=== PATIENT | female | born 1955 | race Hispanic/Latino ===

== ENCOUNTER 2021-04-22 11:56 | Inpatient (IN) | payer MEDICARE ==
[2021-04-22] MEDS ORDERED: ALBUTEROL 2.5 MG/3 ML NEBU IH ONE ×2 (13:16→20:30)
--- NOTE | 2021-04-22 13:20 | Event Note ---
ED Screening Note Date of service: 04/22/21 Time: 13:17 ED Screening Note: This initial assessment/diagnostic orders/clinical plan/treatment(s) is/are subject to change based on patients health status, clinical progression and re- assessment by fellow clinical providers in the ED. Further treatment and workup at subsequent clinical providers discretion. Patient/guardian urged not to elope from the ED as their condition may be serious if not clinically assessed and managed. Initial orders include: This is a 66-year-old female she presents to the emergency room with complaint of cough x1 week productive at times feeling short of breath and left rib pain with her cough. She was seen her PCP last week , no improvement she denies any other symptoms upon examination her lungs have scattered wheezing. Her past medical history is of COPD diabetes GERD and hypertension.
--- NOTE | 2021-04-22 14:15 | XRay Report ---
CHEST 2 VIEWS INDICATION / CLINICAL INFORMATION: cough wheezing. COMPARISON: None available. FINDINGS: SUPPORT DEVICES: None. HEART / MEDIASTINUM: Cardiomegaly LUNGS / PLEURA: No significant pulmonary or pleural abnormality. No pneumothorax. ADDITIONAL FINDINGS: No significant additional findings. IMPRESSION: 1. Cardiomegaly without CHF Signer Name: Alexis Swenson MD Signed: 04/22/2021 2:10 PM Workstation Name: [id number]
[2021-04-22 15:50] LABS: Hematocrit 36.6 % (30.3-42.9); Mean Corpuscular HGB Conc 33 % (30-34); Mean Corpuscular Volume 94 fl (79-97); Platelet Count 168 K/mm3 (140-440); Red Blood Count 3.89 M/mm3 (3.65-5.03); Red Cell Distribution Width 19.3 % (13.2-15.2)
[2021-04-22 16:05] LABS: Albumin 4.1 g/dL (3.9-5); Calcium 9.1 mg/dL (8.4-10.2)
[2021-04-22] MEDS ORDERED: IPRATROPIUM 0.02% NEBU 2.5 ML IH ONE (20:30)
--- NOTE | 2021-04-22 20:35 | Emergency Department Report ---
ED General Adult HPI - General Chief complaint: Upper Respiratory Infection Stated complaint: SOB PUI?: No Time Seen by Provider: 04/22/21 20:33 Source: patient, EMS (EMS documentation reviewed and appreciated), RN notes reviewed, old records reviewed Mode of arrival: Wheelchair Limitations: Physical Limitation - History of Present Illness Initial comments: The patient was evaluated in the emergency department for symptoms described in the history of present illness. He/she was evaluated in the context of the global COVID-19 pandemic, which necessitated consideration that the patient might be at risk for infection with the virus that causes COVID-19. Institutional protocols and algorithms that pertain to the evaluation of patients at risk for COVID-19 are in a state of rapid change based on information released by regulatory bodies including the CDC and federal and state organizations. These policies and algorithms were followed during the patient's care in the emergency department. Please note that these policies, procedures and recommendations changed on a rapid basis. Primary CARE doctor: Jarod This is a 66-year-old female. Past medical history includes having completed COVID-19 vaccination series, COPD, hepatitis C, GERD, and hypertension, history of hypokalemia, hypomagnesemia, and urinary tract infection. The patient presents to the ER today via EMS with a complaint of cough, wheezing, shortness of breath, mucus production, left lateral rib cage pain, present for a few days. She has been using albuterol at home, and took steroids on Saturday; today is currently Saturday. She saw her outpatient primary care doctor who "I do not remember what they did." EMS gave the patient 5 mg of albuterol in the field as per their documentation. Patient received additional albuterol and Atrovent in this emergency room. She is still having cough, wheezing, shortness of breath and tachypnea. The patient denies travel, surgery, posterior leg pain and swelling, immobilization, DVT and pulmonary embolism risk factors. She denies loss of taste and smell, and Covid exposure. -: Gradual, days(s) Location: chest (Left lateral thorax) Radiation: non-radiation Quality: aching Consistency: constant Improves with: rest Worsens with: movement (Left lateral thorax pain increases with palpation and range of motion.), other (Physical exertion, coughing worsen symptom) - Related Data Home Medications Medication Instructions Recorded Confirmed Last Taken Tiotropium [Spiriva] 1 inhalation INHALATION DAILY 08/27/14 03/27/16 08/30/14 Previous Rx's Medication Instructions Recorded Last Taken Type traMADoL [Ultram 50 MG tab] 50 mg PO Q6HR PRN #10 tablet 08/24/15 Unknown Rx Acetaminophen [Acetaminophen TAB] 650 mg PO Q4H PRN #30 tablet 04/01/16 Unknown Rx Ipratropium/Albuterol Sulfate 1 ampul IH TIDRT #30 ampul.neb 04/01/16 Unknown Rx [DUONEB *Not for PRN Use*] LORazepam [Ativan] 0.5 mg PO BID PRN #15 tab 04/01/16 Unknown Rx Metoclopramide [Reglan ORAL LIQ] 10 mg PO AC #1 mo 04/01/16 Unknown Rx Allergies Allergy/AdvReac Type Severity Reaction Status Date / Time No Known Allergies Allergy Verified 08/24/15 11:40 ED Review of Systems ROS: Stated complaint: SOB Other details as noted in HPI Constitutional: malaise, weakness. denies: fever Eyes: denies: eye discharge ENT: congestion Respiratory: cough, shortness of breath, SOB with exertion, SOB at rest, wheezing Cardiovascular: other (Left lateral thorax pain). denies: chest pain Gastrointestinal: denies: abdominal pain, nausea Genitourinary: denies: dysuria Musculoskeletal: arthralgia, myalgia Neurological: weakness Psychiatric: anxiety ED Past Medical Hx - Past Medical History Previous Medical History?: Yes Hx Hypertension: Yes Hx Congestive Heart Failure: No Hx Diabetes: Yes Hx GERD: Yes Hx Liver Disease: Yes (Hepatitis C) Hx Renal Disease: No Hx Seizures: No Hx Psychiatric Treatment: Yes (depression) Hx Asthma: Yes Hx COPD: Yes Hx HIV: No - Surgical History Past Surgical History?: Yes Additional Surgical History: BILATERAL CATARACT REMOVAL. LEFT ROTATOR CUFF REPAIR - Social History Smoking Status: Former Smoker Substance Use Type: Prescribed - Medications Home Medications: Home Medications Medication Instructions Recorded Confirmed Last Taken Type Tiotropium [Spiriva] 1 inhalation INHALATION DAILY 08/27/14 03/27/16 08/30/14 History traMADoL [Ultram 50 MG tab] 50 mg PO Q6HR PRN #10 tablet 08/24/15 03/27/16 Unknown Rx Acetaminophen [Acetaminophen TAB] 650 mg PO Q4H PRN #30 tablet 04/01/16 Unknown Rx Ipratropium/Albuterol Sulfate 1 ampul IH TIDRT #30 ampul.neb 04/01/16 Unknown Rx [DUONEB *Not for PRN Use*] LORazepam [Ativan] 0.5 mg PO BID PRN #15 tab 04/01/16 Unknown Rx Metoclopramide [Reglan ORAL LIQ] 10 mg PO AC #1 mo 04/01/16 Unknown Rx ED Physical Exam - General Limitations: Physical Limitation General appearance: alert, anxious, in distress, obese - Head Head exam: Present: atraumatic, normocephalic - Eye Eye exam: Present: normal appearance, EOMI. Absent: nystagmus - ENT ENT exam: Present: normal exam, normal orophraynx, mucous membranes moist, normal external ear exam - Neck Neck exam: Present: normal inspection, full ROM. Absent: tenderness, meningismus - Respiratory Respiratory exam: Present: respiratory distress, wheezes, rhonchi, chest wall tenderness (Left lateral thorax tenderness) - Cardiovascular Cardiovascular Exam: Present: normal rhythm, tachycardia, normal heart sounds. Absent: bradycardia, irregular rhythm, systolic murmur, diastolic murmur, rubs, gallop - GI/Abdominal GI/Abdominal exam: Present: soft. Absent: distended, tenderness, guarding, rebound, rigid, pulsatile mass - Extremities Exam Extremities exam: Present: normal inspection, full ROM, other (2+ pulses noted in the bilateral upper and lower extremities. There is no palpable cord. negative Homans sign. Muscular compartments are soft. The pelvis is stable.). Absent: pedal edema, calf tenderness - Back Exam Back exam: Present: normal inspection. Absent: tenderness, CVA tenderness (R), CVA tenderness (L), paraspinal tenderness, vertebral tenderness - Neurological Exam Neurological exam: Present: alert, other (No facial droop. Tongue midline. Extraocular movements intact bilaterally. Facial sensation intact to light touch in V1, V2, V3 distribution bilaterally. 5 and a 5 strength in 4 extremities. Sensation intact to light touch in 4 extremities.). Absent: motor sensory deficit - Psychiatric Psychiatric exam: Present: anxious - Skin Skin exam: Present: warm, dry, intact, normal color. Absent: rash ED Course Vital Signs 04/22/21 04/22/21 04/22/21 12:45 14:44 21:36 Temperature 97.8 F Pulse Rate 118 H 117 H Respiratory 24 32 H Rate Respiratory 20 Rate [Posterior Bilateral Throughout] Blood Pressure 145/84 147/80 O2 Sat by Pulse 95 100 Oximetry - Reevaluation(s) Reevaluation #1: 04/22/21 21:25 Differential diagnosis, including but not limited to: Costochondritis, COPD exacerbation, pneumonia, bronchitis Assessment and plan: 66-year-old female with persistent cough, wheezing, tachypnea, shortness of breath, who denies DVT and pulmonary embolism risk factors, who I find to be low risk by Wells criteria for pulmonary embolism, with reproducible left lateral rib cage and thorax tenderness, with persistent wheezing, and tachypnea, in the context of appropriate medical management, including albuterol, Atrovent, steroids, magnesium. She will be started on BiPAP. We will treat her symptoms. We will admit her to the medical service for continued management. I have discussed this plan of care with the patient, who verbalized understanding, and who is amenable to this plan of care. Hospital physician is paged to arrange admission. 04/22/21 21:26 She is also found to have mild renal insufficiency, and glucose of 56. We will perform Accu-Cheks, as needed glucose, glucose as needed, and give gentle IV fluids for mild renal insufficiency. 04/22/21 21:41 Repeat Accu-Chek is 67. D5 half-normal ordered at 100 cc/h. Every hour Accu-Cheks ordered. Patient appears more comfortable on BiPAP at this time. Hospital physician, Dr. Mace to admit to IMCU 04/22/21 22:19 Elevated troponin is likely a type II troponin leak. ED Medical Decision Making - Lab Data Result diagrams: 04/22/21 15:07 04/22/21 15:07 Vital Signs 04/22/21 04/22/21 12:45 14:44 Temperature 97.8 F Pulse Rate 118 H Respiratory 24 Rate Respiratory 20 Rate [Posterior Bilateral Throughout] Blood Pressure 145/84 O2 Sat by Pulse 95 Oximetry Lab Results 04/22/21 04/22/21 Range/Units 15:07 15:07 WBC 11.2 H (4.5-11.0) K/mm3 RBC 3.89 (3.65-5.03) M/mm3 Hgb 12.0 (10.1-14.3) gm/dl Hct 36.6 (30.3-42.9) % MCV 94 (79-97) fl MCH 31 (28-32) pg MCHC 33 (30-34) % RDW 19.3 H (13.2-15.2) % Plt Count 168 (140-440) K/mm3 Sodium 143 (137-145) mmol/L Potassium 3.6 (3.6-5.0) mmol/L Chloride 102.4 (98-107) mmol/L Carbon Dioxide 24 (22-30) mmol/L Anion Gap 20 mmol/L BUN 28 H (7-17) mg/dL Creatinine 1.4 H (0.6-1.2) mg/dL Estimated GFR 38 ml/min BUN/Creatinine Ratio 20 % Glucose 56 L (65-100) mg/dL Calcium 9.1 (8.4-10.2) mg/dL Total Bilirubin 0.30 (0.1-1.2) mg/dL AST 15 (5-40) units/L ALT 16 (7-56) units/L Alkaline Phosphatase 43 (35-129) units/L Total Protein 6.8 (6.3-8.2) g/dL Albumin 4.1 (3.9-5) g/dL Albumin/Globulin Ratio 1.5 % - EKG Data -: EKG Interpreted by Id EKG shows normal: sinus rhythm Rate: tachycardia - EKG Data 04/22/21 21:29 EKG interpreted at 20: 52 Sinus tachycardia, 112 bpm. Normal axis, normal intervals, motion artifact, not a STEMI, unchanged from prior EKG from 04/01/2016 Critical Care Time: Yes Critical care time in (mins) excluding proc time.: 35 Critical care attestation.: If time is entered above; I have spent that time in minutes in the direct care of this critically ill patient, excluding procedure time. ED Disposition Clinical Impression: COPD with exacerbation, Costochondritis, Hypoglycemia, Renal insufficiency Disposition: - OP ADMIT IP TO THIS HOSP Is pt being admited?: Yes Does the pt Need Aspirin: No Condition: Fair Instructions: Chronic Bronchitis (ED) Referrals: [facility] [Other] - 3-5 Days
[2021-04-22] MEDS ORDERED: KETOROLAC 30 MG/1 ML INJ IV ONE ×2 (20:48→23:30)
[2021-04-22] MEDS ORDERED: methylPREDNISolone Sod Succinate 125 MG/2 ML INJ IV ONE ×2 (20:48→23:30)
[2021-04-22] MEDS ORDERED: cefTRIAXone/NS 1 GM/50 ML 1 GM/50 ML BAG IV ONE ×2 (20:49→23:30)
[2021-04-22] MEDS ORDERED: AZITHROMYCIN/NS 500 MG/250 ML 500 MG/250 ML BAG IV ONE ×2 (20:49→23:30)
[2021-04-22] MEDS ORDERED: SODIUM CHLORIDE 0.9% 500 ML 500 ML IV ONE ×2 (20:50→23:30)
[2021-04-22] MEDS ORDERED: DEXTROSE 50% IN WATER (25GM) 50 ML SYRINGE IV PRN ×2 (21:27→22:06)
[2021-04-22] MEDS ORDERED: D5W/0.45% NACL 1,000 ML IV SCH (22:00)
[2021-04-22] MEDS ORDERED: ONDANSETRON 4 MG/2 ML INJ IV PRN (22:06)
[2021-04-22] MEDS ORDERED: ACETAMINOPHEN 325 MG TAB PO PRN (22:06)
[2021-04-22] MEDS ORDERED: LORazepam 0.5 MG TAB PO PRN (22:09)
[2021-04-22] MEDS ORDERED: traMADol 50 MG TAB PO PRN (22:09)
--- NOTE | 2021-04-22 22:14 | History and Physical Report ---
History of Present Illness Date of examination: 04/22/21 Date of admission: 04/22/21 Chief complaint: Shortness of breath Upper respiratory tract infection History of present illness: 66-year-old female with past medical history of COPD, hepatitis C, GERD, and hypertension, history of hypokalemia, hypomagnesemia, and urinary tract infection Was brought to the emergency room of cough, wheezing, shortness of breath, mucus production, left lateral rib cage pain, present for a few days. She has been using albuterol at home, and took steroids on Saturday. Today patient saw the primary care physician and take the medication without any relief. Subsequently patient was brought to the emergency room EMS gave the patient 5 mg of albuterol in the field as per their documentation. Patient received additional albuterol and Atrovent in this emergency room. She is still having cough, wheezing, shortness of breath and tachypnea. The patient denies travel, surgery, posterior leg pain and swelling, immobilization, DVT and pulmonary embolism risk factors. She denies loss of taste and smell, and Covid exposure. As per patient patient completed Covid vaccination. In the emergency room patient is found to have COPD exacerbation. Patient is put on BiPAP Past History Past Medical History: COPD, GERD, hypertension, other (Hepatitis C, urinary tract infection) Medications and Allergies Allergies Allergy/AdvReac Type Severity Reaction Status Date / Time No Known Allergies Allergy Verified 08/24/15 11:40 Home Medications Medication Instructions Recorded Confirmed Last Taken Type Tiotropium [Spiriva] 1 inhalation INHALATION DAILY 08/27/14 03/27/16 08/30/14 History traMADoL [Ultram 50 MG tab] 50 mg PO Q6HR PRN #10 tablet 08/24/15 03/27/16 Unknown Rx Acetaminophen [Acetaminophen TAB] 650 mg PO Q4H PRN #30 tablet 04/01/16 Unknown Rx Ipratropium/Albuterol Sulfate 1 ampul IH TIDRT #30 ampul.neb 04/01/16 Unknown Rx [DUONEB *Not for PRN Use*] LORazepam [Ativan] 0.5 mg PO BID PRN #15 tab 04/01/16 Unknown Rx Metoclopramide [Reglan ORAL LIQ] 10 mg PO AC #1 mo 04/01/16 Unknown Rx Active Meds: Active Medications Dextrose (Dextrose 50% In Water (25gm) 50 Ml Syringe) 50 ml IV Q30MIN PRN; Protocol PRN Reason: Hypoglycemia Dextrose/Sodium Chloride (D5/0.45ns) 1,000 mls @ 100 mls/hr IV DIRECT FRANCES Review of Systems Respiratory: cough, cough with sputum, shortness of breath, dyspnea on exertion, wheezing Exam - Constitutional Vitals: Temp Pulse Resp BP Pulse Ox 97.8 F 117 H 32 H 147/80 100 04/22/21 12:45 04/22/21 21:36 04/22/21 21:36 04/22/21 21:36 04/22/21 21:36 General appearance: Present: mild distress, well-nourished - EENT Eyes: Present: PERRL ENT: hearing intact, clear oral mucosa - Neck Neck: Present: supple, normal ROM - Respiratory Respiratory effort: normal Respiratory: bilateral: wheezing - Cardiovascular Heart Sounds: Present: S1 & S2. Absent: rub, click - Extremities Extremities: pulses symmetrical, No edema Peripheral Pulses: within normal limits - Abdominal General gastrointestinal: Present: soft, non-tender, non-distended, normal bowel sounds Female genitourinary: Present: normal - Integumentary Integumentary: Present: clear, warm, dry - Musculoskeletal Musculoskeletal: gait normal, strength equal bilaterally - Psychiatric Psychiatric: appropriate mood/affect, intact judgment & insight - Neurologic Neurologic: CNII-XII intact, moves all extremities Results - Labs CBC & Chem 7: 04/22/21 15:07 04/22/21 15:07 Labs: Laboratory Last Values WBC 11.2 K/mm3 (4.5-11.0) H 04/22/21 15:07 RBC 3.89 M/mm3 (3.65-5.03) 04/22/21 15:07 Hgb 12.0 gm/dl (10.1-14.3) 04/22/21 15:07 Hct 36.6 % (30.3-42.9) 04/22/21 15:07 MCV 94 fl (79-97) 04/22/21 15:07 MCH 31 pg (28-32) 04/22/21 15:07 MCHC 33 % (30-34) 04/22/21 15:07 RDW 19.3 % (13.2-15.2) H 04/22/21 15:07 Plt Count 168 K/mm3 (140-440) 04/22/21 15:07 Sodium 143 mmol/L (137-145) 04/22/21 15:07 Potassium 3.6 mmol/L (3.6-5.0) 04/22/21 15:07 Chloride 102.4 mmol/L (98-107) 04/22/21 15:07 Carbon Dioxide 24 mmol/L (22-30) 04/22/21 15:07 Anion Gap 20 mmol/L 04/22/21 15:07 BUN 28 mg/dL (7-17) H 04/22/21 15:07 Creatinine 1.4 mg/dL (0.6-1.2) H 04/22/21 15:07 Estimated GFR 38 ml/min 04/22/21 15:07 BUN/Creatinine Ratio 20 % 04/22/21 15:07 Glucose 56 mg/dL (65-100) L 04/22/21 15:07 POC Glucose 67 mg/dL (70-105) L 04/22/21 21:38 Calcium 9.1 mg/dL (8.4-10.2) 04/22/21 15:07 Total Bilirubin 0.30 mg/dL (0.1-1.2) 04/22/21 15:07 AST 15 units/L (5-40) 04/22/21 15:07 ALT 16 units/L (7-56) 04/22/21 15:07 Alkaline Phosphatase 43 units/L (35-129) 04/22/21 15:07 Total Protein 6.8 g/dL (6.3-8.2) 04/22/21 15:07 Albumin 4.1 g/dL (3.9-5) 04/22/21 15:07 Albumin/Globulin Ratio 1.5 % 04/22/21 15:07 - Imaging and Cardiology Chest x-ray: report reviewed Assessment and Plan VTE prophylaxis?: Chemical Plan of care discussed with patient/family: Yes - Patient Problems (1) COPD with exacerbation Current Visit: Yes Status: Acute Plan to address problem: Admit the patient to the IMCU. Put the patient on BiPAP. DuoNeb by nebulizer every 4 hours as needed. Solu-Medrol 40 mg IV every 8 hours. Rocephin 2 g IV daily and Zithromax we will do the blood culture and sputum culture. (2) Hypoglycemia Current Visit: Yes Status: Acute Plan to address problem: We will put the patient on cardiac diet. We also put the patient on D5W half- normal saline at the rate of 100 cc/h. We will monitor the blood glucose closely. Recheck CBC BMP in the morning (3) Hypertension Current Visit: Yes Status: Acute Plan to address problem: Hydralazine 10 mg IV every 6 hours as needed. We will monitor the blood pressure closely. (4) CURT (acute kidney injury) Current Visit: Yes Status: Acute Plan to address problem: We will put the patient on D5 half-normal saline at the rate of 100 cc/h. We avoid the nephrotoxic drug. Repeat BMP in the morning. (5) DVT prophylaxis Current Visit: No Status: Acute Plan to address problem: Heparin 5000 units subcu every 8 hours for DVT prophylaxis. Protonix 40 mg p.o. daily for GI prophylaxis. Patient is a full code
[2021-04-22] MEDS ORDERED: hydrALAZINE 20 MG/1 ML INJ IV PRN (22:21)
[2021-04-22 22:53] LABS: Chol/HDL Ratio 1.76 %
[2021-04-23] MEDS ORDERED: D5W/0.45% NACL 1,000 ML IV SCH (01:00)
[2021-04-23] MEDS ORDERED: IPRATROPIUM/ALBUTEROL SULFATE 3 ML AMPUL.NEB IH SCH (02:00)
[2021-04-23] MEDS: IPRATROPIUM/ALBUTEROL SULFATE 3 ML AMPUL.NEB IH SCH ×4 (02:26→22:32)
[2021-04-23] MEDS: methylPREDNISolone Sod Succinate 40 MG/1 ML INJ IV SCH ×3 (06:06→21:22)
[2021-04-23] MEDS: HEPARIN 5,000 UNIT/1 ML VIAL SUB-Q SCH ×3 (06:06→21:22)
[2021-04-23 07:06] LABS: Hematocrit 29.5 % (30.3-42.9); Mean Corpuscular HGB Conc 34 % (30-34); Mean Corpuscular Volume 94 fl (79-97); Platelet Count 125 K/mm3 (140-440); Red Blood Count 3.13 M/mm3 (3.65-5.03); Red Cell Distribution Width 19.5 % (13.2-15.2)
[2021-04-23 07:18] LABS: Calcium 8.1 mg/dL (8.4-10.2)
[2021-04-23] MEDS ORDERED: METOCLOPRAMIDE 10 MG/10 ML ORAL LIQD PO SCH (07:30)
[2021-04-23] MEDS: INSULIN LISPRO 100 UNIT/ML SUB-Q SCH ×4 (09:00→21:31)
[2021-04-23] MEDS: PANTOPRAZOLE 40 MG TAB PO SCH (09:32)
[2021-04-23] MEDS ORDERED: FAMOTIDINE 20 MG TAB PO SCH (10:00)
[2021-04-23] MEDS ORDERED: TIOTROPIUM 18 MCG CAP INHALATION IH SCH (10:00)
[2021-04-23] MEDS ORDERED: FAMOTIDINE 10 MG TAB PO SCH (10:00)
[2021-04-23] MEDS: ARFORMOTEROL 15 MCG/2 ML NEBU IH SCH ×2 (10:20→22:31)
[2021-04-23] MEDS: BUDESONIDE 0.5 MG/2 ML NEBU IH SCH ×2 (10:20→22:32)
--- NOTE | 2021-04-23 10:36 | Progress Note ---
Subjective Date of service: 04/23/21 Interval history: History of present illness: 66-year-old female with past medical history of COPD, hepatitis C, GERD, and hypertension, history of hypokalemia, hypomagnesemia, and urinary tract infection Was brought to the emergency room of cough, wheezing, shortness of breath, mucus production, left lateral rib cage pain, present for a few days. She has been using albuterol at home, and took steroids on Saturday. Today patient saw the primary care physician and take the medication without any relief. Subsequently patient was brought to the emergency room EMS gave the patient 5 mg of albuterol in the field as per their documentation. Patient received additional albuterol and Atrovent in this emergency room. She is still having cough, wheezing, shortness of breath and tachypnea. The patient denies travel, surgery, posterior leg pain and swelling, immobilization, DVT and pulmonary embolism risk factors. She denies loss of taste and smell, and Covid exposure. As per patient patient completed Covid vaccination. In the emergency room patient is found to have COPD exacerbation. Patient is put on BiPAP 04/23 patient is awake and alert, appears mildly short of breath, but she offers no specific complaints except mild cough. She denies any fever or chills. Denies chest pain or shortness of breath. She denies any abdominal pain or nausea. Chart reviewed. Lab results reviewed Assessment and plan Acute hypoxic respiratory failure secondary to COPD exacerbation At present on 3 L oxygen via nasal cannula and oxygen saturations are 97% COPD exacerbation Continue aggressive neb treatments with DuoNeb solution Continue IV Solu-Medrol We will add Pulmicort and arformoterol solutions for nebulizer Chest x-ray reviewed Hypertension ? BP is stable off medication Reviewed home medications and patient is not on antihypertensive medication either Acute kidney injury Continue gentle IV hydration Avoid nephrotoxins Monitor renal function Normocytic anemia No overt bleed Monitor H&H History of GERD Continue PPI Dyslipidemia Mildly elevated triglycerides and total cholesterol HDL is 136 No need for statin at this time Hypoglycemia Resolved Check A1c Objective - Constitutional Vitals: Vital Signs - 12hr 04/23/21 04/23/21 04/23/21 00:59 01:30 01:32 Temperature Pulse Rate 102 H 95 H 94 H Pulse Rate [ Posterior Bilateral Throughout] Respiratory 20 28 H 20 Rate Respiratory Rate [Posterior Bilateral Throughout] Blood Pressure 166/62 Blood Pressure 159/85 163/69 [Left] O2 Sat by Pulse 100 100 100 Oximetry 04/23/21 04/23/21 04/23/21 02:26 03:24 05:09 Temperature 97.3 F L 97.8 F Pulse Rate 103 H 104 H Pulse Rate [ 102 H Posterior Bilateral Throughout] Respiratory 22 20 Rate Respiratory 22 Rate [Posterior Bilateral Throughout] Blood Pressure 134/62 137/65 Blood Pressure [Left] O2 Sat by Pulse 93 96 Oximetry 04/23/21 04/23/21 04/23/21 08:41 09:57 10:20 Temperature 97.4 F L Pulse Rate 104 H 121 H Pulse Rate [ Posterior Bilateral Throughout] Respiratory 20 Rate Respiratory Rate [Posterior Bilateral Throughout] Blood Pressure 129/67 135/89 Blood Pressure [Left] O2 Sat by Pulse 94 97 96 Oximetry General appearance: Present: no acute distress, well-nourished, obese - EENT Eyes: PERRL, EOM intact ENT: hearing intact, clear oral mucosa, no thrush - Neck Neck: supple, normal ROM, no masses or JVD - Respiratory Respiratory effort: normal Respiratory: bilateral: diminished, rhonchi - Cardiovascular Rhythm: regular Heart Sounds: Present: S1 & S2 Extremities: No edema - Gastrointestinal General gastrointestinal: Present: soft Rectal Exam: deferred - Genitourinary Female genitourinary: deferred - Integumentary Integumentary: clear - Musculoskeletal Musculoskeletal: strength equal bilaterally - Neurologic Neurologic: moves all extremities - Psychiatric Psychiatric: appropriate mood/affect - Labs CBC & Chem 7: 04/23/21 06:00 04/23/21 06:00 Labs: Abnormal lab results 04/22/21 04/22/21 04/22/21 Range/Units 15:07 15:07 21:37 WBC 11.2 H (4.5-11.0) K/mm3 RBC (3.65-5.03) M/mm3 Hgb (10.1-14.3) gm/dl Hct (30.3-42.9) % RDW 19.3 H (13.2-15.2) % Plt Count (140-440) K/mm3 ABG pH (7.320-7.450) POC ABG pCO2 (32.0-48.0) mmHg POC ABG pO2 (83-108) mmHg ABG Oxyhemoglobin (94-98) Carbon Dioxide (22-30) mmol/L BUN 28 H (7-17) mg/dL Creatinine 1.4 H (0.6-1.2) mg/dL Glucose 56 L (65-100) mg/dL POC Glucose (70-105) mg/dL Lactic Acid 2.30 H* (0.7-2.0) mmol/L Calcium (8.4-10.2) mg/dL Total Creatine Kinase (30-135) units/L Troponin T (0.00-0.029) ng/mL Triglycerides (2-149) mg/dL Cholesterol (50-199) mg/dL HDL Cholesterol (40-59) mg/dL 04/22/21 04/22/21 04/22/21 Range/Units 21:37 21:38 21:40 WBC (4.5-11.0) K/mm3 RBC (3.65-5.03) M/mm3 Hgb (10.1-14.3) gm/dl Hct (30.3-42.9) % RDW (13.2-15.2) % Plt Count (140-440) K/mm3 ABG pH 7.462 H (7.320-7.450) POC ABG pCO2 29.5 L (32.0-48.0) mmHg POC ABG pO2 56.6 L (83-108) mmHg ABG Oxyhemoglobin 89.5 L (94-98) Carbon Dioxide (22-30) mmol/L BUN (7-17) mg/dL Creatinine (0.6-1.2) mg/dL Glucose (65-100) mg/dL POC Glucose 67 L (70-105) mg/dL Lactic Acid (0.7-2.0) mmol/L Calcium (8.4-10.2) mg/dL Total Creatine Kinase 27 L (30-135) units/L Troponin T 0.034 H (0.00-0.029) ng/mL Triglycerides 245 H (2-149) mg/dL Cholesterol 233 H (50-199) mg/dL HDL Cholesterol 132 H (40-59) mg/dL 04/23/21 04/23/21 04/23/21 Range/Units 05:38 06:00 06:00 WBC (4.5-11.0) K/mm3 RBC 3.13 L (3.65-5.03) M/mm3 Hgb 10.0 L (10.1-14.3) gm/dl Hct 29.5 L D (30.3-42.9) % RDW 19.5 H (13.2-15.2) % Plt Count 125 L (140-440) K/mm3 ABG pH (7.320-7.450) POC ABG pCO2 (32.0-48.0) mmHg POC ABG pO2 (83-108) mmHg ABG Oxyhemoglobin (94-98) Carbon Dioxide 20 L (22-30) mmol/L BUN 27 H (7-17) mg/dL Creatinine 1.3 H (0.6-1.2) mg/dL Glucose 187 H (65-100) mg/dL POC Glucose 187 H (70-105) mg/dL Lactic Acid (0.7-2.0) mmol/L Calcium 8.1 L (8.4-10.2) mg/dL Total Creatine Kinase (30-135) units/L Troponin T (0.00-0.029) ng/mL Triglycerides (2-149) mg/dL Cholesterol (50-199) mg/dL HDL Cholesterol (40-59) mg/dL HEART Score - HEART Score Troponin: Troponin T 0.034 ng/mL (0.00-0.029) H 04/22/21 21:37
[2021-04-23 10:53] LABS: Bilirubin,Urine NEG (Negative); Blood,Urine NEG (Negative); Color,Urine Yellow (Yellow); Mucus,Urine FEW /HPF; Protein,Urine <15 mg/dL mg/dL (Negative); Urobilinogen,Urine < 2.0 mg/dL (<2.0)
[2021-04-23 12:06] LABS: Band Neutrophils # (Manual) 0.1 K/mm3; Myelocytes # (Manual) 0.1 K/mm3; Total Cells Counted 100
[2021-04-23 12:07] LABS: Platelet Estimate Consistent w Auto; Tear Drop Cells Few
[2021-04-23] MEDS: SODIUM CHLORIDE 0.45% 1000 ML 1,000 ML IV SCH (14:40)
[2021-04-23] MEDS: MONTELUKAST 10 MG TAB PO SCH (21:21)
[2021-04-24] MEDS: IPRATROPIUM/ALBUTEROL SULFATE 3 ML AMPUL.NEB IH SCH ×4 (02:37→21:12)
[2021-04-24] MEDS: methylPREDNISolone Sod Succinate 40 MG/1 ML INJ IV SCH ×3 (05:13→21:59)
[2021-04-24] MEDS: HEPARIN 5,000 UNIT/1 ML VIAL SUB-Q SCH ×3 (05:14→22:00)
[2021-04-24 06:35] LABS: Calcium 8.4 mg/dL (8.4-10.2)
[2021-04-24] MEDS: SODIUM CHLORIDE 0.45% 1000 ML 1,000 ML IV SCH (07:32)
[2021-04-24] MEDS: ARFORMOTEROL 15 MCG/2 ML NEBU IH SCH ×2 (09:17→21:10)
[2021-04-24] MEDS: BUDESONIDE 0.5 MG/2 ML NEBU IH SCH ×2 (09:17→21:10)
--- NOTE | 2021-04-24 09:53 | Progress Note ---
Subjective Date of service: 04/24/21 Interval history: History of present illness: 66-year-old female with past medical history of COPD, hepatitis C, GERD, and hypertension, history of hypokalemia, hypomagnesemia, and urinary tract infection Was brought to the emergency room of cough, wheezing, shortness of breath, mucus production, left lateral rib cage pain, present for a few days. She has been using albuterol at home, and took steroids on Saturday. Today patient saw the primary care physician and take the medication without any relief. Subsequently patient was brought to the emergency room EMS gave the patient 5 mg of albuterol in the field as per their documentation. Patient received additional albuterol and Atrovent in this emergency room. She is still having cough, wheezing, shortness of breath and tachypnea. The patient denies travel, surgery, posterior leg pain and swelling, immobilization, DVT and pulmonary embolism risk factors. She denies loss of taste and smell, and Covid exposure. As per patient patient completed Covid vaccination. In the emergency room patient is found to have COPD exacerbation. Patient is put on BiPAP 04/23 patient is awake and alert, appears mildly short of breath, but she offers no specific complaints except mild cough. She denies any fever or chills. Denies chest pain or shortness of breath. She denies any abdominal pain or nausea. Chart reviewed. Lab results reviewed 04/24 awake and alert, appears mildly short of breath, still coughing, she denies any fever or chills./She denies any chest pain nausea or abdominal pain Lab results reviewed,. Blood cultures no growth to date Assessment and plan Acute hypoxic respiratory failure secondary to COPD exacerbation At present on 3 L oxygen via nasal cannula and oxygen saturations are 95-96%% COPD exacerbation Continue aggressive neb treatments with DuoNeb solution Continue IV Solu-Medrol Continue Pulmicort and arformoterol solutions via nebulizer Chest x-ray reviewed Hypertension ? BP is stable off medication Reviewed home medications and patient is not on antihypertensive medication either Acute kidney injury Rule out chronic kidney disease Serum creatinine unchanged at 1.3 We will discontinue IV fluids Avoid nephrotoxins Monitor renal function Normocytic anemia No overt bleed Monitor H&H History of GERD Continue PPI Dyslipidemia Mildly elevated triglycerides and total cholesterol HDL is 136 No need for statin at this time Hypoglycemia Resolved A1c 5.8 Objective - Constitutional Vitals: Vital Signs - 12hr 04/23/21 04/23/21 04/24/21 22:00 23:16 04:26 Temperature 97.8 F 97.7 F Pulse Rate 111 H 112 H Respiratory 24 28 H Rate Blood Pressure 133/71 Blood Pressure 137/74 [Left] O2 Sat by Pulse 95 89 95 Oximetry 04/24/21 07:56 Temperature 98.9 F Pulse Rate 100 H Respiratory 20 Rate Blood Pressure 154/69 Blood Pressure [Left] O2 Sat by Pulse 96 Oximetry General appearance: Present: no acute distress - EENT Eyes: PERRL, EOM intact ENT: hearing intact - Neck Neck: supple, normal ROM, no masses or JVD - Respiratory Respiratory effort: other (Mildly dyspneic) Respiratory: bilateral: diminished, rhonchi - Cardiovascular Rhythm: regular Heart Sounds: Present: S1 & S2 Extremities: No edema - Gastrointestinal General gastrointestinal: Present: soft, non-tender Rectal Exam: deferred - Genitourinary Female genitourinary: deferred - Integumentary Integumentary: clear - Musculoskeletal Musculoskeletal: generalized weakness - Neurologic Neurologic: moves all extremities - Labs CBC & Chem 7: 04/23/21 06:00 04/24/21 05:41 Labs: Abnormal lab results 04/23/21 04/23/21 04/23/21 Range/Units 06:00 08:40 11:23 Seg Neuts % (Manual) 83.0 H (40.0-70.0) % Lymphocytes % (Manual) 3.0 L (13.4-35.0) % Nucleated RBC % 1.0 H (0.0-0.9) % Lymphocytes # (Manual) 0.2 L (1.2-5.4) K/mm3 Carbon Dioxide (22-30) mmol/L BUN (7-17) mg/dL Creatinine (0.6-1.2) mg/dL Glucose (65-100) mg/dL POC Glucose 210 H 167 H (70-105) mg/dL 04/23/21 04/23/21 04/23/21 Range/Units 16:29 20:28 22:27 Seg Neuts % (Manual) (40.0-70.0) % Lymphocytes % (Manual) (13.4-35.0) % Nucleated RBC % (0.0-0.9) % Lymphocytes # (Manual) (1.2-5.4) K/mm3 Carbon Dioxide (22-30) mmol/L BUN (7-17) mg/dL Creatinine (0.6-1.2) mg/dL Glucose (65-100) mg/dL POC Glucose 293 H 53 L 162 H (70-105) mg/dL 04/24/21 04/24/21 Range/Units 05:41 07:53 Seg Neuts % (Manual) (40.0-70.0) % Lymphocytes % (Manual) (13.4-35.0) % Nucleated RBC % (0.0-0.9) % Lymphocytes # (Manual) (1.2-5.4) K/mm3 Carbon Dioxide 21 L (22-30) mmol/L BUN 24 H (7-17) mg/dL Creatinine 1.3 H (0.6-1.2) mg/dL Glucose 126 H (65-100) mg/dL POC Glucose 116 H (70-105) mg/dL HEART Score - HEART Score Troponin: Troponin T 0.034 ng/mL (0.00-0.029) H 04/22/21 21:37
[2021-04-24] MEDS: PANTOPRAZOLE 40 MG TAB PO SCH (09:56)
[2021-04-24] MEDS: INSULIN LISPRO 100 UNIT/ML SUB-Q SCH ×4 (09:57→22:00)
[2021-04-24] MEDS: cefTRIAXone/NS 1 GM/50 ML 1 GM/50 ML BAG IV SCH (13:43)
[2021-04-24] MEDS: MONTELUKAST 10 MG TAB PO SCH (22:00)
[2021-04-25] MEDS: HEPARIN 5,000 UNIT/1 ML VIAL SUB-Q SCH ×3 (05:44→22:38)
[2021-04-25] MEDS: methylPREDNISolone Sod Succinate 40 MG/1 ML INJ IV SCH ×3 (05:44→22:38)
[2021-04-25] MEDS: ARFORMOTEROL 15 MCG/2 ML NEBU IH SCH ×2 (07:44→20:59)
[2021-04-25] MEDS: IPRATROPIUM/ALBUTEROL SULFATE 3 ML AMPUL.NEB IH SCH ×4 (07:44→20:58)
[2021-04-25] MEDS: BUDESONIDE 0.5 MG/2 ML NEBU IH SCH ×2 (07:44→20:59)
[2021-04-25] MEDS: PANTOPRAZOLE 40 MG TAB PO SCH (08:17)
[2021-04-25] MEDS: cefTRIAXone/NS 1 GM/50 ML 1 GM/50 ML BAG IV SCH (09:45)
--- NOTE | 2021-04-25 10:21 | Electrocardiograph Report ---
[facility] Test Date: 2021-04-22 Test Time: 20:52:02 Pat Name: DELTA RUSSELL Department: Room: A463 1 Gender: F [employer]: JAYNE : 1955 Requested By: LINK ALDANA Order Number: [id number] Reading MD: Yasir Berry Measurements Intervals [place] Rate: 112 P: 47 CA: 110 QRS: 3 QRSD: 90 T: 59 QT: 325 QTc: 444 Interpretive Statements Sinus tachycardia No previous ECG available for comparison Electronically Signed On 04-25-2021 10:20:56 EDT by Yasir Berry
[2021-04-25] MEDS: INSULIN LISPRO 100 UNIT/ML SUB-Q SCH ×4 (12:15→22:39)
--- NOTE | 2021-04-25 17:00 | Progress Note ---
Assessment and Plan 66-year-old female with past medical history of COPD, hepatitis C, GERD, and hypertension, history of hypokalemia, hypomagnesemia, and urinary tract infection Was brought to the emergency room with cough, wheezing, shortness of breath, mucus production, left lateral rib cage pain, present for a few days and not being relieved with outpatient medications..In the emergency room patient was found to have COPD exacerbation, started BiPAP and admitted for further evaluation management. Assessment and plan --Acute hypoxic respiratory failure secondary to COPD exacerbation At present on 3 L oxygen via nasal cannula and oxygen saturations are 95-96%% --COPD exacerbation Continue aggressive neb treatments with DuoNeb solution Continue IV Solu-Medrol Continue Pulmicort and arformoterol solutions via nebulizer Chest x-ray reviewed --Hypertension ? BP is stable off medication Reviewed home medications and patient is not on antihypertensive medication either --Acute kidney injury Rule out chronic kidney disease Serum creatinine unchanged at 1.3 We will discontinue IV fluids Avoid nephrotoxins Monitor renal function --Normocytic anemia No overt bleed Monitor H&H --History of GERD Continue PPI --Dyslipidemia Mildly elevated triglycerides and total cholesterol HDL is 136 No need for statin at this time --Hypoglycemia Resolved A1c 5.8 --Full CODE STATUS --DVT prophylaxis Daily clinical course: 04/23 patient is awake and alert, appears mildly short of breath, but she offers no specific complaints except mild cough. She denies any fever or chills. Denies chest pain or shortness of breath. She denies any abdominal pain or nausea. Chart reviewed. Lab results reviewed 04/24 awake and alert, appears mildly short of breath, still coughing, she denies any fever or chills./She denies any chest pain nausea or abdominal pain Lab results reviewed,. Blood cultures no growth to date 04/25: Patient remains on 3 L nasal cannula O2. Wean off O2 as tolerated. Assess for home O2 requirement. Continue supplemental oxygen, nebulizer breathing treatment, tapering dose of steroid. Subjective Date of service: 04/25/21 Interval history: Patient seen and examined. Medical records and medication list reviewed. No acute event overnight noted by the RN. Patient remains on 3 L O2, continue to complains of difficulty breathing even on resting. Patient is tolerating diet. Discussed plan of care at bedside with patient. Objective - Exam Narrative Exam: General appearance: Present: no acute distress, patient with puffy face - EENT Eyes: PERRL, EOM intact ENT: hearing intact - Neck Neck: supple, normal ROM, no masses or JVD - Respiratory Respiratory effort: other (dyspneic) Respiratory: bilateral: diminished, diffuse bilateral rhonchi - Cardiovascular Rhythm: regular Heart Sounds: Present: S1 & S2 Extremities: No edema - Gastrointestinal General gastrointestinal: Present: soft, non-tender Rectal Exam: deferred - Integumentary Integumentary: clear - Musculoskeletal Musculoskeletal: generalized weakness - Neurologic Neurologic: moves all extremities - Constitutional Vitals: Vital Signs - 12hr 04/25/21 04/25/21 04/25/21 07:51 08:10 08:12 Temperature 98.2 F Pulse Rate 94 H Pulse Rate [ 99 H Anterior Bilateral Throughout] Respiratory 18 Rate Respiratory 20 Rate [Anterior Bilateral Throughout] Blood Pressure 154/75 O2 Sat by Pulse 97 97 Oximetry 04/25/21 04/25/21 14:25 16:20 Temperature 97.6 F Pulse Rate 111 H Pulse Rate [ 106 H Anterior Bilateral Throughout] Respiratory 18 Rate Respiratory 21 Rate [Anterior Bilateral Throughout] Blood Pressure 150/86 O2 Sat by Pulse 91 Oximetry - Labs CBC & Chem 7: 04/27/21 05:59 04/27/21 05:59 Labs: Abnormal lab results 04/24/21 04/24/21 04/25/21 Range/Units 15:13 20:43 07:49 POC Glucose 284 H 118 H 122 H (70-105) mg/dL 04/25/21 Range/Units 12:02 POC Glucose 203 H (70-105) mg/dL HEART Score - HEART Score Troponin: Troponin T 0.034 ng/mL (0.00-0.029) H 04/22/21 21:37
[2021-04-25] MEDS: MONTELUKAST 10 MG TAB PO SCH (22:38)
[2021-04-26] MEDS: IPRATROPIUM/ALBUTEROL SULFATE 3 ML AMPUL.NEB IH SCH ×4 (02:33→19:22)
[2021-04-26] MEDS: HEPARIN 5,000 UNIT/1 ML VIAL SUB-Q SCH ×3 (06:13→21:12)
[2021-04-26] MEDS: methylPREDNISolone Sod Succinate 40 MG/1 ML INJ IV SCH ×3 (06:13→21:12)
[2021-04-26] MEDS: INSULIN LISPRO 100 UNIT/ML SUB-Q SCH ×4 (09:38→22:39)
[2021-04-26] MEDS: PANTOPRAZOLE 40 MG TAB PO SCH (09:39)
[2021-04-26] MEDS: cefTRIAXone/NS 1 GM/50 ML 1 GM/50 ML BAG IV SCH (09:40)
[2021-04-26] MEDS: ARFORMOTEROL 15 MCG/2 ML NEBU IH SCH ×2 (10:23→19:22)
[2021-04-26] MEDS: BUDESONIDE 0.5 MG/2 ML NEBU IH SCH ×2 (10:23→19:22)
--- NOTE | 2021-04-26 14:47 | Progress Note ---
Assessment and Plan 66-year-old female with past medical history of COPD, hepatitis C, GERD, and hypertension, history of hypokalemia, hypomagnesemia, and urinary tract infection Was brought to the emergency room with cough, wheezing, shortness of breath, mucus production, left lateral rib cage pain, present for a few days and not being relieved with outpatient medications..In the emergency room patient was found to have COPD exacerbation, started BiPAP and admitted for further evaluation management. A/P --Acute hypoxic respiratory failure secondary to COPD exacerbation Status post BiPAP following admission At present on 4 L oxygen via nasal cannula and oxygen saturations are 95-96%% --COPD exacerbation Continue aggressive neb treatments with DuoNeb solution Continue IV Solu-Medrol Continue Pulmicort and arformoterol solutions via nebulizer Chest x-ray reviewed --Hypertension ? BP is stable off medication Reviewed home medications and patient is not on antihypertensive medication either --Acute kidney injury Rule out chronic kidney disease Serum creatinine unchanged at 1.3 We will discontinue IV fluids Avoid nephrotoxins Monitor renal function --Normocytic anemia No overt bleed Monitor H&H --History of GERD Continue PPI --Dyslipidemia Mildly elevated triglycerides and total cholesterol HDL is 136 No need for statin at this time --Hypoglycemia Resolved A1c 5.8 --Full CODE STATUS --DVT prophylaxis Daily clinical course: 04/23 patient is awake and alert, appears mildly short of breath, but she offers no specific complaints except mild cough. She denies any fever or chills. Denies chest pain or shortness of breath. She denies any abdominal pain or nausea. Chart reviewed. Lab results reviewed 04/24 awake and alert, appears mildly short of breath, still coughing, she denies any fever or chills./She denies any chest pain nausea or abdominal pain Lab results reviewed,. Blood cultures no growth to date 04/25: Patient remains on 3 L nasal cannula O2. Wean off O2 as tolerated. Assess for home O2 requirement. Continue supplemental oxygen, nebulizer breathing treatment, tapering dose of steroid. 04/26: Patient's oxygen requirement went up to 4 L today. Patient will need home oxygen on discharge. Patient states that she did not get up from bed admission. Will consult PT. We will also consult pulmonology. Subjective Date of service: 04/26/21 Interval history: Patient seen and examined. Medical records and medication list reviewed. No acute event overnight noted by the RN. Patient remains on 3-4 L O2, continue to complains of difficulty breathing even on resting. Patient is tolerating diet. Discussed plan of care at bedside with patient. Objective - Exam Narrative Exam: General appearance: Present: no acute distress, patient with puffy face - EENT Eyes: PERRL, EOM intact ENT: hearing intact - Neck Neck: supple, normal ROM, no masses or JVD - Respiratory Respiratory effort: other (dyspneic) Respiratory: bilateral: diminished, diffuse bilateral rhonchi - Cardiovascular Rhythm: regular Heart Sounds: Present: S1 & S2 Extremities: No edema - Gastrointestinal General gastrointestinal: Present: soft, non-tender Rectal Exam: deferred - Integumentary Integumentary: clear - Musculoskeletal Musculoskeletal: generalized weakness - Neurologic Neurologic: moves all extremities - Constitutional Vitals: Vital Signs - 12hr 04/26/21 04/26/21 04/26/21 04:18 07:03 07:47 Temperature 97.9 F 98.0 F Pulse Rate 106 H 115 H Pulse Rate [ Anterior Bilateral Throughout] Pulse Rate [ Posterior Bilateral Throughout] Respiratory 20 20 Rate Respiratory Rate [Anterior Bilateral Throughout] Respiratory Rate [Posterior Bilateral Throughout] Blood Pressure 177/101 143/66 Blood Pressure 177/101 [Left] O2 Sat by Pulse 94 95 Oximetry 04/26/21 04/26/21 04/26/21 10:15 10:40 12:24 Temperature Pulse Rate 108 H Pulse Rate [ 106 H Anterior Bilateral Throughout] Pulse Rate [ 109 H Posterior Bilateral Throughout] Respiratory Rate Respiratory 20 Rate [Anterior Bilateral Throughout] Respiratory 19 Rate [Posterior Bilateral Throughout] Blood Pressure Blood Pressure [Left] O2 Sat by Pulse 97 Oximetry 04/26/21 12:25 Temperature Pulse Rate Pulse Rate [ Anterior Bilateral Throughout] Pulse Rate [ Posterior Bilateral Throughout] Respiratory 20 Rate Respiratory Rate [Anterior Bilateral Throughout] Respiratory Rate [Posterior Bilateral Throughout] Blood Pressure Blood Pressure [Left] O2 Sat by Pulse Oximetry - Labs CBC & Chem 7: 04/27/21 05:59 04/27/21 05:59 Labs: Abnormal lab results 04/22/21 04/25/21 04/25/21 Range/Units 23:28 12:02 21:11 POC Glucose 60 L 203 H 156 H (70-105) mg/dL 04/26/21 04/26/21 Range/Units 07:25 11:48 POC Glucose 135 H 132 H (70-105) mg/dL HEART Score - HEART Score Troponin: Troponin T 0.034 ng/mL (0.00-0.029) H 04/22/21 21:37
--- NOTE | 2021-04-26 16:26 | Consultation ---
History of Present Illness Consult date: 04/26/21 Reason for consult: dyspnea, cough, asthma, hypoxemia History of present illness: 66-year-old female with past medical history of Asthma, hepatitis C, GERD, and hypertension, history of hypokalemia, hypomagnesemia, and urinary tract infection, was brought to the emergency room for cough, wheezing, shortness of breath, mucus production, left lateral rib cage pain, present for a few days. She has been using albuterol at home, and also took steroids. On the day of admission, patient saw the primary care physician and take the medication without any relief. Subsequently patient was brought to the emergency room. EMS gave the patient 5 mg of albuterol in the field as per their documentation. Patient received additional albuterol and Atrovent in this emergency room. She was complaining of cough, wheezing, shortness of breath and tachypnea. The patient denies travel, surgery, posterior leg pain and swelling, immobilization. She denies loss of taste and smell, and Covid exposure. Patient Obese and has some craniofacial abnormality. Denies smoking, alcohol or drug abuse. Worked in [employer] house. and has two children. As per patient patient completed Covid vaccination. In the emergency room patient is found to have asthma exacerbation. Patient was put on BiPAP. Patient Patient ABG's on 04/22/21 on FiO2 30%: ABG pH 7.462 POC ABG pCO2 29.5 mmHg POC ABG pO2 56.6 mmHg POC ABG HCO3 20.6 ABG O2 Saturation 90.2 Patient afebrile with no leukocytosis. Chest x-ray done on 04/22/21 reported cardiomegaly without CHF. Medications include duoneb, brovana, pulmicort, ceftriaxone, s/c heparin, solumedrol, singulair, protonix. Past History Past Medical History: COPD, GERD, hypertension, other (Hepatitis C, urinary tract infection) Medications and Allergies Allergies Allergy/AdvReac Type Severity Reaction Status Date / Time No Known Allergies Allergy Verified 08/24/15 11:40 Home Medications Medication Instructions Recorded Confirmed Last Taken Type Tiotropium [Spiriva] 1 inhalation INHALATION DAILY 08/27/14 03/27/16 08/30/14 History traMADoL [Ultram 50 MG tab] 50 mg PO Q6HR PRN #10 tablet 08/24/15 03/27/16 Unknown Rx Acetaminophen [Acetaminophen TAB] 650 mg PO Q4H PRN #30 tablet 04/01/16 Unknown Rx Ipratropium/Albuterol Sulfate 1 ampul IH TIDRT #30 ampul.neb 04/01/16 Unknown Rx [DUONEB *Not for PRN Use*] LORazepam [Ativan] 0.5 mg PO BID PRN #15 tab 04/01/16 Unknown Rx Metoclopramide [Reglan ORAL LIQ] 10 mg PO AC #1 mo 04/01/16 Unknown Rx Active Meds: Active Medications Acetaminophen (Acetaminophen 325 Mg Tab) 650 mg PO Q4H PRN PRN Reason: Pain MILD(1-3)/Fever >100.5/[facility] Albuterol/Ipratropium (Ipratropium/Albuterol Sulfate 3 Ml Ampul.Neb) 1 ampul IH Q6HRT [facility] Last Admin: 04/26/21 10:23 Dose: 1 ampul Documented by: Arformoterol Tartrate (Arformoterol 15 Mcg/2 Ml Nebu) 15 mcg IH Q12HRT [facility] Last Admin: 04/26/21 10:23 Dose: 15 mcg Documented by: Budesonide (Budesonide 0.5 Mg/2 Ml Nebu) 0.5 mg IH Q12HRT [facility] Last Admin: 04/26/21 10:23 Dose: 0.5 mg Documented by: Dextrose (Dextrose 50% In Water (25gm) 50 Ml Syringe) 50 ml IV Q30MIN PRN; Protocol PRN Reason: Hypoglycemia Last Admin: 04/22/21 23:48 Dose: 50 ml Documented by: Heparin Sodium (Porcine) (Heparin 5,000 Unit/1 Ml Vial) 5,000 unit SUB-Q Q8HR [facility] Last Admin: 04/26/21 13:54 Dose: 5,000 unit Documented by: Hydralazine HCl (Hydralazine 20 Mg/1 Ml Inj) 10 mg IV Q6H PRN PRN Reason: SBP >/=165; DBP >/=100 Last Admin: 04/26/21 07:03 Dose: 10 mg Documented by: Ceftriaxone Sodium (Rocephin/Ns 1 Gm/50 Ml) 1 gm in 50 mls @ 100 mls/hr IV Q24H [facility]; Protocol Stop: 04/28/21 10:29 Last Admin: 04/26/21 09:40 Dose: 100 mls/hr Documented by: Insulin Human Lispro (Insulin Lispro 100 Unit/Ml) 0 unit SUB-Q ACHS [facility]; Protoc ol Last Admin: 04/26/21 13:52 Dose: 3 unit Documented by: Lorazepam (Lorazepam 0.5 Mg Tab) 0.5 mg PO BID PRN PRN Reason: Nausea Methylprednisolone Sodium Succinate (Methylprednisolone Sod Succinate 40 Mg/1 Ml Inj) 40 mg IV Q8HR [facility] Last Admin: 04/26/21 13:54 Dose: 40 mg Documented by: Montelukast Sodium (Montelukast 10 Mg Tab) 10 mg PO QHS [facility] Last Admin: 04/25/21 22:38 Dose: 10 mg Documented by: Ondansetron HCl (Ondansetron 4 Mg/2 Ml Inj) 4 mg IV Q8H PRN PRN Reason: Nausea And Vomiting Pantoprazole Sodium (Pantoprazole 40 Mg Tab) 40 mg PO QDAC [facility] Last Admin: 04/26/21 09:39 Dose: 40 mg Documented by: Sodium Chloride (Sodium Chloride 0.9% 10 Ml Flush Syringe) 10 ml IV BID [facility] Last Admin: 04/26/21 09:40 Dose: 10 ml Documented by: Sodium Chloride (Sodium Chloride 0.9% 10 Ml Flush Syringe) 10 ml IV PRN PRN PRN Reason: LINE FLUSH Last Admin: 04/26/21 06:13 Dose: 10 ml Documented by: Tramadol HCl (Tramadol 50 Mg Tab) 50 mg PO Q6HR PRN PRN Reason: Pain, Moderate (4-6) Review of Systems All systems: negative Physical Examination Vital signs: Vital Signs Temp Pulse Resp BP Pulse Ox 97.8 F 118 H 24 145/84 95 04/22/21 12:45 04/22/21 12:45 04/22/21 12:45 04/22/21 12:45 04/22/21 12:45 General appearance: alert, appears uncomfortable Eyes: non-icteric ENT: oropharynx moist Neck: supple, no JVD, other (Short neck.) Effort: mildly labored Ascultation: Bilateral: wheezes (Occasional wheezing.) Cardiovascular: regular rate and rhythm Gastrointestinal: normoactive bowel sounds, soft, non-tender Integumentary: normal Extremities: no cyanosis, no edema Musculoskeletal: no deformities Gait: other (Unable to assess. Patient is in the bed.) non-focal exam, pupils equal and round, CN II-XII normal anxious Results - Laboratory Findings CBC and BMP: 04/27/21 05:59 04/27/21 05:59 ABG ABG pH 7.462 (7.320-7.450) H 04/22/21 21:40 POC ABG pCO2 29.5 mmHg (32.0-48.0) L 04/22/21 21:40 POC ABG pO2 56.6 mmHg (83-108) L 04/22/21 21:40 POC ABG HCO3 20.6 04/22/21 21:40 ABG O2 Saturation 90.2 (0-100) 04/22/21 21:40 Abnormal lab findings: Abnormal Labs 04/22/21 04/22/21 04/22/21 15:07 15:07 21:37 WBC 11.2 H RBC Hgb Hct RDW 19.3 H Plt Count Seg Neuts % (Manual) Lymphocytes % (Manual) Nucleated RBC % Lymphocytes # (Manual) ABG pH POC ABG pCO2 POC ABG pO2 ABG Oxyhemoglobin Carbon Dioxide BUN 28 H Creatinine 1.4 H Glucose 56 L POC Glucose Lactic Acid 2.30 H* Calcium Total Creatine Kinase Troponin T Triglycerides Cholesterol HDL Cholesterol 04/22/21 04/22/21 04/22/21 21:37 21:38 21:40 WBC RBC Hgb Hct RDW Plt Count Seg Neuts % (Manual) Lymphocytes % (Manual) Nucleated RBC % Lymphocytes # (Manual) ABG pH 7.462 H POC ABG pCO2 29.5 L POC ABG pO2 56.6 L ABG Oxyhemoglobin 89.5 L Carbon Dioxide BUN Creatinine Glucose POC Glucose 67 L Lactic Acid Calcium Total Creatine Kinase 27 L Troponin T 0.034 H Triglycerides 245 H Cholesterol 233 H HDL Cholesterol 132 H 04/22/21 04/23/21 04/23/21 23:28 05:38 06:00 WBC RBC 3.13 L Hgb 10.0 L Hct 29.5 L D RDW 19.5 H Plt Count 125 L Seg Neuts % (Manual) 83.0 H Lymphocytes % (Manual) 3.0 L Nucleated RBC % 1.0 H Lymphocytes # (Manual) 0.2 L ABG pH POC ABG pCO2 POC ABG pO2 ABG Oxyhemoglobin Carbon Dioxide BUN Creatinine Glucose POC Glucose 60 L 187 H Lactic Acid Calcium Total Creatine Kinase Troponin T Triglycerides Cholesterol HDL Cholesterol 04/23/21 04/23/21 04/23/21 06:00 08:40 11:23 WBC RBC Hgb Hct RDW Plt Count Seg Neuts % (Manual) Lymphocytes % (Manual) Nucleated RBC % Lymphocytes # (Manual) ABG pH POC ABG pCO2 POC ABG pO2 ABG Oxyhemoglobin Carbon Dioxide 20 L BUN 27 H Creatinine 1.3 H Glucose 187 H POC Glucose 210 H 167 H Lactic Acid Calcium 8.1 L Total Creatine Kinase Troponin T Triglycerides Cholesterol HDL Cholesterol 04/23/21 04/23/21 04/23/21 16:29 20:28 22:27 WBC RBC Hgb Hct RDW Plt Count Seg Neuts % (Manual) Lymphocytes % (Manual) Nucleated RBC % Lymphocytes # (Manual) ABG pH POC ABG pCO2 POC ABG pO2 ABG Oxyhemoglobin Carbon Dioxide BUN Creatinine Glucose POC Glucose 293 H 53 L 162 H Lactic Acid Calcium Total Creatine Kinase Troponin T Triglycerides Cholesterol HDL Cholesterol 04/24/21 04/24/21 04/24/21 05:41 07:53 10:59 WBC RBC Hgb Hct RDW Plt Count Seg Neuts % (Manual) Lymphocytes % (Manual) Nucleated RBC % Lymphocytes # (Manual) ABG pH POC ABG pCO2 POC ABG pO2 ABG Oxyhemoglobin Carbon Dioxide 21 L BUN 24 H Creatinine 1.3 H Glucose 126 H POC Glucose 116 H 118 H Lactic Acid Calcium Total Creatine Kinase Troponin T Triglycerides Cholesterol HDL Cholesterol 04/24/21 04/24/21 04/25/21 15:13 20:43 07:49 WBC RBC Hgb Hct RDW Plt Count Seg Neuts % (Manual) Lymphocytes % (Manual) Nucleated RBC % Lymphocytes # (Manual) ABG pH POC ABG pCO2 POC ABG pO2 ABG Oxyhemoglobin Carbon Dioxide BUN Creatinine Glucose POC Glucose 284 H 118 H 122 H Lactic Acid Calcium Total Creatine Kinase Troponin T Triglycerides Cholesterol HDL Cholesterol 04/25/21 04/25/21 04/26/21 12:02 21:11 07:25 WBC RBC Hgb Hct RDW Plt Count Seg Neuts % (Manual) Lymphocytes % (Manual) Nucleated RBC % Lymphocytes # (Manual) ABG pH POC ABG pCO2 POC ABG pO2 ABG Oxyhemoglobin Carbon Dioxide BUN Creatinine Glucose POC Glucose 203 H 156 H 135 H Lactic Acid Calcium Total Creatine Kinase Troponin T Triglycerides Cholesterol HDL Cholesterol 04/26/21 11:48 WBC RBC Hgb Hct RDW Plt Count Seg Neuts % (Manual) Lymphocytes % (Manual) Nucleated RBC % Lymphocytes # (Manual) ABG pH POC ABG pCO2 POC ABG pO2 ABG Oxyhemoglobin Carbon Dioxide BUN Creatinine Glucose POC Glucose 132 H Lactic Acid Calcium Total Creatine Kinase Troponin T Triglycerides Cholesterol HDL Cholesterol - Diagnostic Findings Chest x-ray: report reviewed, image reviewed Additional studies: CHEST 2 VIEWS 04/22/21 INDICATION / CLINICAL INFORMATION: cough wheezing. COMPARISON: None available. FINDINGS: SUPPORT DEVICES: None. HEART / MEDIASTINUM: Cardiomegaly LUNGS / PLEURA: No significant pulmonary or pleural abnormality. No pneumothorax. ADDITIONAL FINDINGS: No significant additional findings. IMPRESSION: 1. Cardiomegaly without CHF Assessment and Plan 66-year-old female with past medical history of Asthma, hepatitis C, GERD, and hypertension, history of hypokalemia, hypomagnesemia, and urinary tract infection, was brought to the emergency room for cough, wheezing, shortness of breath, mucus production, left lateral rib cage pain, present for a few days. She has been using albuterol at home, and also took steroids. On the day of admission, patient saw the primary care physician and take the medication without any relief. Subsequently patient was brought to the emergency room. EMS gave the patient 5 mg of albuterol in the field as per their documentation. Patient received additional albuterol and Atrovent in this emergency room. She was complaining of cough, wheezing, shortness of breath and tachypnea. The patient denies travel, surgery, posterior leg pain and swelling, immobilization. She denies loss of taste and smell, and Covid exposure. Patient Obese and has some craniofacial abnormality. Denies smoking, alcohol or drug abuse. Worked in [employer]. and has two children. As per patient patient completed Covid vaccination. In the emergency room patient is found to have asthma exacerbation. Patient was put on BiPAP. Patient Patient ABG's on 04/22/21 on FiO2 30%: ABG pH 7.462 POC ABG pCO2 29.5 mmHg POC ABG pO2 56.6 mmHg POC ABG HCO3 20.6 ABG O2 Saturation 90.2 Patient afebrile with no leukocytosis. Chest x-ray done on 04/22/21 reported cardiomegaly without CHF. Medications include duoneb, brovana, pulmicort, ceftriaxone, s/c heparin, solumedrol, singulair, protonix. - Patient Problems (1) Acute hypoxemic respiratory failure Current Visit: Yes Status: Acute Plan to address problem: O2 2 litres via nasal canula Albuterol/atrovent aerosol treatments q 6 hours. Continue I/V solumedrol Continue ceftriaxone. Continue S/C Heparin Continue protonix. (2) COPD with exacerbation Current Visit: Yes Status: Acute (3) CURT (acute kidney injury) Current Visit: Yes Status: Acute Plan to address problem: Management as per nephrology (4) Hypertension Current Visit: Yes Status: Acute Plan to address problem: Management as per primary care. (5) Hepatitis C Current Visit: No Status: Chronic Plan to address problem: Management as per primary care. (6) Respiratory alkalosis Current Visit: Yes Status: Acute Plan to address problem: Recommend Angio CT of chest. If there is any contraindication for angio CT of chest recommend V/Q scan (7) Hypoxemia Current Visit: No Status: Acute Plan to address problem: Recommend Angio CT of chest. If there is any contraindication for angio CT of chest recommend V/Q scan (8) Obesity (BMI 30.0-34.9) Current Visit: Yes Status: Acute Plan to address problem: Recommend to loose weight. Patient Obese and has short neck. Recommend sleep study as out patient.
[2021-04-26] MEDS: MONTELUKAST 10 MG TAB PO SCH (21:12)
[2021-04-27] MEDS: methylPREDNISolone Sod Succinate 40 MG/1 ML INJ IV SCH ×3 (05:51→22:21)
[2021-04-27] MEDS: HEPARIN 5,000 UNIT/1 ML VIAL SUB-Q SCH ×3 (05:51→22:21)
[2021-04-27 06:24] LABS: Hematocrit 31.4 % (30.3-42.9); Hemoglobin 10.5 gm/dl (10.1-14.3); Mean Corpuscular HGB Conc 33 % (30-34); Mean Corpuscular Volume 94 fl (79-97); Platelet Count 143 K/mm3 (140-440); Red Blood Count 3.36 M/mm3 (3.65-5.03)
[2021-04-27 06:39] LABS: BUN/Creatinine Ratio 37; Blood Urea Nitrogen 33 mg/dL (7-17); Calcium 8.8 mg/dL (8.4-10.2); Hemolysis Index 2
[2021-04-27] MEDS: BUDESONIDE 0.5 MG/2 ML NEBU IH SCH ×2 (08:06→21:11)
[2021-04-27] MEDS: ARFORMOTEROL 15 MCG/2 ML NEBU IH SCH ×2 (08:06→21:12)
[2021-04-27] MEDS: IPRATROPIUM/ALBUTEROL SULFATE 3 ML AMPUL.NEB IH SCH ×3 (08:07→21:12)
[2021-04-27] MEDS: PANTOPRAZOLE 40 MG TAB PO SCH (08:15)
[2021-04-27] MEDS: INSULIN LISPRO 100 UNIT/ML SUB-Q SCH ×4 (08:15→22:20)
[2021-04-27] MEDS: cefTRIAXone/NS 1 GM/50 ML 1 GM/50 ML BAG IV SCH (09:14)
[2021-04-27 10:08] LABS: Anisocytosis Few; Band Neutrophils # (Manual) 0.6 K/mm3; Macrocytosis Few; Myelocytes # (Manual) 0.1 K/mm3; Total Cells Counted 100
[2021-04-27 10:09] LABS: Platelet Estimate Consistent w Auto
--- NOTE | 2021-04-27 13:55 | Cat Scan Report ---
Micro-CT chest CT angio chest INDICATION / CLINICAL INFORMATION: Possible pulmonary embolism.. TECHNIQUE: Axial CT images were obtained through the chest after injection of IV contrast. 3 plane MIP and/or 3D reconstructions were produced. All CT scans at this location are performed using CT dose reduction f or ALARA by means of automated exposure control. COMPARISON: None available. FINDINGS: PULMONARY ARTERIES: No central filling defects. Respiratory motion degrades image quality obscuring t he segmental and subsegmental pulmonary arteries. HEART: No significant abnormality. MEDIASTINUM / BHARAT: No significant abnormality. LUNGS: Right lower lobe basilar subsegmental atelectasis. Motion degrades image quality. No pleural e ffusion. No pneumothorax. ADDITIONAL FINDINGS: None. UPPER ABDOMEN: No acute findings. SKELETAL STRUCTURES: No significant osseous abnormality. IMPRESSION: 1. No CT evidence for central pulmonary embolism. 2. No acute findings. Signer Name: Akbar Hay MD Signed: 04/27/2021 1:51 PM Workstation Name: [id number]
--- NOTE | 2021-04-27 14:52 | Progress Note ---
Assessment and Plan 66-year-old female with past medical history of COPD, hepatitis C, GERD, and hypertension, history of hypokalemia, hypomagnesemia, and urinary tract infection Was brought to the emergency room with cough, wheezing, shortness of breath, mucus production, left lateral rib cage pain, present for a few days and not being relieved with outpatient medications..In the emergency room patient was found to have COPD exacerbation, started BiPAP and admitted for further evaluation management. A/P --Acute hypoxic respiratory failure secondary to COPD exacerbation Status post BiPAP following admission At present on 4 L oxygen via nasal cannula and oxygen saturations are 95-96%% --COPD exacerbation Continue aggressive neb treatments with DuoNeb solution Continue IV Solu-Medrol Continue Pulmicort and arformoterol solutions via nebulizer Chest x-ray reviewed --Hypertension ? BP is stable off medication Reviewed home medications and patient is not on antihypertensive medication either --Acute kidney injury, likely from vasomotor nephropathy Resolved with IV fluid Avoid nephrotoxins Monitor renal function --Normocytic anemia No overt bleed Monitor H&H --History of GERD Continue PPI --Dyslipidemia Mildly elevated triglycerides and total cholesterol HDL is 136 No need for statin at this time --Hypoglycemia Resolved A1c 5.8 --Full CODE STATUS --DVT prophylaxis Daily clinical course: 04/23 patient is awake and alert, appears mildly short of breath, but she offers no specific complaints except mild cough. She denies any fever or chills. Denies chest pain or shortness of breath. She denies any abdominal pain or nausea. Chart reviewed. Lab results reviewed 04/24 awake and alert, appears mildly short of breath, still coughing, she denies any fever or chills./She denies any chest pain nausea or abdominal pain Lab results reviewed,. Blood cultures no growth to date 04/25: Patient remains on 3 L nasal cannula O2. Wean off O2 as tolerated. Assess for home O2 requirement. Continue supplemental oxygen, nebulizer breathing treatment, tapering dose of steroid. 04/26: Patient's oxygen requirement went up to 4 L today. Patient will need home oxygen on discharge. Patient states that she did not get up from bed admission. Will consult PT. We will also consult pulmonology. 04/27: CTA chest today showed no acute PE, patient is unable to participate in physical therapy due to shortness of breath. Continue to wean off from O2, continue supportive care, follow pulmonary recommendation. Patient may need placement. Subjective Date of service: 04/27/21 Interval history: Patient seen and examined. Medical records and medication list reviewed. No acute event overnight noted by the RN. Patient remains on 3-4 L O2, continue to complains of difficulty breathing even on resting. Patient is tolerating diet. Discussed plan of care at bedside with patient. Objective - Exam Narrative Exam: General appearance: Present: no acute distress, patient with puffy face - EENT Eyes: PERRL, EOM intact ENT: hearing intact - Neck Neck: supple, normal ROM, no masses or JVD - Respiratory Respiratory effort: other (dyspneic) Respiratory: bilateral: diminished, diffuse bilateral rhonchi - Cardiovascular Rhythm: regular Heart Sounds: Present: S1 & S2 Extremities: No edema - Gastrointestinal General gastrointestinal: Present: soft, non-tender Rectal Exam: deferred - Integumentary Integumentary: clear - Musculoskeletal Musculoskeletal: generalized weakness - Neurologic Neurologic: moves all extremities - Constitutional Vitals: Vital Signs - 12hr 04/27/21 04/27/21 04/27/21 04:34 07:21 08:00 Temperature 97.8 F 97.9 F Pulse Rate 101 H 104 H Pulse Rate [ 107 H Anterior Bilateral Throughout] Respiratory 20 18 Rate Respiratory 18 Rate [Anterior Bilateral Throughout] Blood Pressure 156/93 179/90 O2 Sat by Pulse 98 98 Oximetry 04/27/21 04/27/21 04/27/21 08:09 09:13 11:32 Temperature 98.0 F Pulse Rate 102 H 109 H Pulse Rate [ Anterior Bilateral Throughout] Respiratory 18 Rate Respiratory Rate [Anterior Bilateral Throughout] Blood Pressure 132/73 168/80 O2 Sat by Pulse 97 95 94 Oximetry 04/27/21 14:00 Temperature Pulse Rate Pulse Rate [ 106 H Anterior Bilateral Throughout] Respiratory Rate Respiratory 18 Rate [Anterior Bilateral Throughout] Blood Pressure O2 Sat by Pulse Oximetry - Labs CBC & Chem 7: 04/27/21 05:59 04/27/21 05:59 Labs: Abnormal lab results 04/26/21 04/27/21 04/27/21 Range/Units 21:30 05:59 05:59 WBC 11.8 H (4.5-11.0) K/mm3 RBC 3.36 L (3.65-5.03) M/mm3 RDW 19.0 H (13.2-15.2) % Seg Neuts % (Manual) 76.0 H (40.0-70.0) % Lymphocytes % (Manual) 9.0 L (13.4-35.0) % Nucleated RBC % 1.0 H (0.0-0.9) % Seg Neutrophils # Man 9.0 H (1.8-7.7) K/mm3 Lymphocytes # (Manual) 1.1 L (1.2-5.4) K/mm3 BUN 33 H (7-17) mg/dL Glucose 102 H (65-100) mg/dL POC Glucose 111 H (70-105) mg/dL 04/27/21 04/27/21 Range/Units 07:22 11:33 WBC (4.5-11.0) K/mm3 RBC (3.65-5.03) M/mm3 RDW (13.2-15.2) % Seg Neuts % (Manual) (40.0-70.0) % Lymphocytes % (Manual) (13.4-35.0) % Nucleated RBC % (0.0-0.9) % Seg Neutrophils # Man (1.8-7.7) K/mm3 Lymphocytes # (Manual) (1.2-5.4) K/mm3 BUN (7-17) mg/dL Glucose (65-100) mg/dL POC Glucose 108 H 109 H (70-105) mg/dL HEART Score - HEART Score Troponin: Troponin T 0.034 ng/mL (0.00-0.029) H 04/22/21 21:37
--- NOTE | 2021-04-27 15:56 | Progress Note ---
Assessment and Plan Acute hypoxemic respiratory failure COPD with exacerbation CURT (acute kidney injury) Hypertension Hepatitis C Respiratory alkalosis Obesity (BMI 30.0-34.9) - continue to wean supplemental oxygen to keep O2 sats > 90% - continue Bronchodilators (MARJORIE & LABA) with pulm hygiene per RT - continue systemic steroids with slow taper - continue inhaled corticosteroids - continue to avoid nephrotoxins, renally dose all medications - continue mobility protocols to prevent pressure ulcers - PT/OT as tolerated - Wound care per RN/WCT - continue accuchecks with glycemic control per SSI for target blood glucose < 180 mg/dL - Smoking cessation strongly counseled at the bedside - home oxygen evaluation at discharge - GI & VTE prophylaxis - Flu & pneumovax per protocol - Pulmonary out patient follow up for PFTs and optimization of respiratory status - continue other care per attending / other consultants - prn analgesia per pain score ... re-evaluate in am & prn Subjective Date of service: 04/27/21 Interval history: Patient is seen today for: Acute hypoxemic respiratory failure; AE-COPD; CURT; Obesity (BMI 30.0-34.9) Seen and examined at bedside; 24hour events reviewed; nursing and respiratory care staff consulted; no adverse overnight events reported to me; resting in bed; Objective Vital Signs - 12hr 04/27/21 04/27/21 04/27/21 04:34 07:21 08:00 Temperature 97.8 F 97.9 F Pulse Rate 101 H 104 H Pulse Rate [ 107 H Anterior Bilateral Throughout] Respiratory 20 18 Rate Respiratory 18 Rate [Anterior Bilateral Throughout] Blood Pressure 156/93 179/90 O2 Sat by Pulse 98 98 Oximetry 04/27/21 04/27/21 04/27/21 08:09 09:13 10:00 Temperature Pulse Rate 102 H 94 H Pulse Rate [ Anterior Bilateral Throughout] Respiratory Rate Respiratory Rate [Anterior Bilateral Throughout] Blood Pressure 132/73 O2 Sat by Pulse 97 95 Oximetry 04/27/21 04/27/21 11:32 14:00 Temperature 98.0 F Pulse Rate 109 H Pulse Rate [ 106 H Anterior Bilateral Throughout] Respiratory 18 Rate Respiratory 18 Rate [Anterior Bilateral Throughout] Blood Pressure 168/80 O2 Sat by Pulse 94 Oximetry Constitutional: alert, appears uncomfortable Eyes: non-icteric ENT: oropharynx moist Neck: supple, no JVD, other (Short neck.) Effort: mildly labored Ascultation: Bilateral: wheezes (Occasional wheezing.) Cardiovascular: regular rate and rhythm Gastrointestinal: normoactive bowel sounds, soft, non-tender Integumentary: normal Extremities: no cyanosis, no edema Neurologic: non-focal exam, pupils equal and round, CN II-XII normal Psychiatric: anxious CBC and BMP: 04/27/21 05:59 04/27/21 05:59 ABG, PT/INR, D-dimer: ABG ABG pH 7.462 (7.320-7.450) H 04/22/21 21:40 POC ABG pCO2 29.5 mmHg (32.0-48.0) L 04/22/21 21:40 POC ABG pO2 56.6 mmHg (83-108) L 04/22/21 21:40 POC ABG HCO3 20.6 04/22/21 21:40 ABG O2 Saturation 90.2 (0-100) 04/22/21 21:40 Abnormal lab findings: Abnormal Labs 04/22/21 04/22/21 04/22/21 15:07 15:07 21:37 WBC 11.2 H RBC Hgb Hct RDW 19.3 H Plt Count Seg Neuts % (Manual) Lymphocytes % (Manual) Nucleated RBC % Seg Neutrophils # Man Lymphocytes # (Manual) ABG pH POC ABG pCO2 POC ABG pO2 ABG Oxyhemoglobin Carbon Dioxide BUN 28 H Creatinine 1.4 H Glucose 56 L POC Glucose Lactic Acid 2.30 H* Calcium Total Creatine Kinase Troponin T Triglycerides Cholesterol HDL Cholesterol 04/22/21 04/22/21 04/22/21 21:37 21:38 21:40 WBC RBC Hgb Hct RDW Plt Count Seg Neuts % (Manual) Lymphocytes % (Manual) Nucleated RBC % Seg Neutrophils # Man Lymphocytes # (Manual) ABG pH 7.462 H POC ABG pCO2 29.5 L POC ABG pO2 56.6 L ABG Oxyhemoglobin 89.5 L Carbon Dioxide BUN Creatinine Glucose POC Glucose 67 L Lactic Acid Calcium Total Creatine Kinase 27 L Troponin T 0.034 H Triglycerides 245 H Cholesterol 233 H HDL Cholesterol 132 H 04/22/21 04/23/21 04/23/21 23:28 05:38 06:00 WBC RBC 3.13 L Hgb 10.0 L Hct 29.5 L D RDW 19.5 H Plt Count 125 L Seg Neuts % (Manual) 83.0 H Lymphocytes % (Manual) 3.0 L Nucleated RBC % 1.0 H Seg Neutrophils # Man Lymphocytes # (Manual) 0.2 L ABG pH POC ABG pCO2 POC ABG pO2 ABG Oxyhemoglobin Carbon Dioxide BUN Creatinine Glucose POC Glucose 60 L 187 H Lactic Acid Calcium Total Creatine Kinase Troponin T Triglycerides Cholesterol HDL Cholesterol 04/23/21 04/23/21 04/23/21 06:00 08:40 11:23 WBC RBC Hgb Hct RDW Plt Count Seg Neuts % (Manual) Lymphocytes % (Manual) Nucleated RBC % Seg Neutrophils # Man Lymphocytes # (Manual) ABG pH POC ABG pCO2 POC ABG pO2 ABG Oxyhemoglobin Carbon Dioxide 20 L BUN 27 H Creatinine 1.3 H Glucose 187 H POC Glucose 210 H 167 H Lactic Acid Calcium 8.1 L Total Creatine Kinase Troponin T Triglycerides Cholesterol HDL Cholesterol 04/23/21 04/23/21 04/23/21 16:29 20:28 22:27 WBC RBC Hgb Hct RDW Plt Count Seg Neuts % (Manual) Lymphocytes % (Manual) Nucleated RBC % Seg Neutrophils # Man Lymphocytes # (Manual) ABG pH POC ABG pCO2 POC ABG pO2 ABG Oxyhemoglobin Carbon Dioxide BUN Creatinine Glucose POC Glucose 293 H 53 L 162 H Lactic Acid Calcium Total Creatine Kinase Troponin T Triglycerides Cholesterol HDL Cholesterol 04/24/21 04/24/21 04/24/21 05:41 07:53 10:59 WBC RBC Hgb Hct RDW Plt Count Seg Neuts % (Manual) Lymphocytes % (Manual) Nucleated RBC % Seg Neutrophils # Man Lymphocytes # (Manual) ABG pH POC ABG pCO2 POC ABG pO2 ABG Oxyhemoglobin Carbon Dioxide 21 L BUN 24 H Creatinine 1.3 H Glucose 126 H POC Glucose 116 H 118 H Lactic Acid Calcium Total Creatine Kinase Troponin T Triglycerides Cholesterol HDL Cholesterol 04/24/21 04/24/21 04/25/21 15:13 20:43 07:49 WBC RBC Hgb Hct RDW Plt Count Seg Neuts % (Manual) Lymphocytes % (Manual) Nucleated RBC % Seg Neutrophils # Man Lymphocytes # (Manual) ABG pH POC ABG pCO2 POC ABG pO2 ABG Oxyhemoglobin Carbon Dioxide BUN Creatinine Glucose POC Glucose 284 H 118 H 122 H Lactic Acid Calcium Total Creatine Kinase Troponin T Triglycerides Cholesterol HDL Cholesterol 04/25/21 04/25/21 04/26/21 12:02 21:11 07:25 WBC RBC Hgb Hct RDW Plt Count Seg Neuts % (Manual) Lymphocytes % (Manual) Nucleated RBC % Seg Neutrophils # Man Lymphocytes # (Manual) ABG pH POC ABG pCO2 POC ABG pO2 ABG Oxyhemoglobin Carbon Dioxide BUN Creatinine Glucose POC Glucose 203 H 156 H 135 H Lactic Acid Calcium Total Creatine Kinase Troponin T Triglycerides Cholesterol HDL Cholesterol 04/26/21 04/26/21 04/27/21 11:48 21:30 05:59 WBC 11.8 H RBC 3.36 L Hgb Hct RDW 19.0 H Plt Count Seg Neuts % (Manual) 76.0 H Lymphocytes % (Manual) 9.0 L Nucleated RBC % 1.0 H Seg Neutrophils # Man 9.0 H Lymphocytes # (Manual) 1.1 L ABG pH POC ABG pCO2 POC ABG pO2 ABG Oxyhemoglobin Carbon Dioxide BUN Creatinine Glucose POC Glucose 132 H 111 H Lactic Acid Calcium Total Creatine Kinase Troponin T Triglycerides Cholesterol HDL Cholesterol 04/27/21 04/27/21 04/27/21 05:59 07:22 11:33 WBC RBC Hgb Hct RDW Plt Count Seg Neuts % (Manual) Lymphocytes % (Manual) Nucleated RBC % Seg Neutrophils # Man Lymphocytes # (Manual) ABG pH POC ABG pCO2 POC ABG pO2 ABG Oxyhemoglobin Carbon Dioxide BUN 33 H Creatinine Glucose 102 H POC Glucose 108 H 109 H Lactic Acid Calcium Total Creatine Kinase Troponin T Triglycerides Cholesterol HDL Cholesterol
[2021-04-27] MEDS: MONTELUKAST 10 MG TAB PO SCH (22:20)
[2021-04-28] MEDS: HEPARIN 5,000 UNIT/1 ML VIAL SUB-Q SCH ×4 (06:22→22:04)
[2021-04-28] MEDS: methylPREDNISolone Sod Succinate 40 MG/1 ML INJ IV SCH ×4 (06:22→22:04)
[2021-04-28] MEDS: INSULIN LISPRO 100 UNIT/ML SUB-Q SCH ×4 (08:24→22:07)
[2021-04-28] MEDS: IPRATROPIUM/ALBUTEROL SULFATE 3 ML AMPUL.NEB IH SCH ×3 (08:42→20:28)
[2021-04-28] MEDS: ARFORMOTEROL 15 MCG/2 ML NEBU IH SCH ×2 (08:42→20:27)
[2021-04-28] MEDS: BUDESONIDE 0.5 MG/2 ML NEBU IH SCH ×2 (08:42→20:27)
[2021-04-28] MEDS: cefTRIAXone/NS 1 GM/50 ML 1 GM/50 ML BAG IV SCH (09:37)
[2021-04-28] MEDS: PANTOPRAZOLE 40 MG TAB PO SCH (09:37)
--- NOTE | 2021-04-28 12:31 | Progress Note ---
Assessment and Plan Acute hypoxemic respiratory failure AE-COPD CURT (acute kidney injury) Hypertension Hepatitis C Respiratory alkalosis Obesity (BMI 30.0-34.9) - continue to titrate supplemental oxygen to keep SpO2 89-92% - continue Bronchodilators (MARJORIE & DIANNA) with pulmonary hygiene per RT - continue systemic steroids with slow taper - continue to avoid nephrotoxins, renally dose all medications - continue mobility protocols to prevent pressure ulcers - PT/OT as tolerated -Avoid nephrotoxins, renally function is slowly improving -Keep even to negative fluid balance as tolerated by hemodynamics, renal function adn electrolyte profile -Complete 5 day course of empiric antibiotic therapy for community acquired pneumonia - continue accuchecks with glycemic control per SSI for target blood glucose < 180 mg/dL - home oxygen evaluation at discharge - Stress ulcer prophylaxis while on high dose steroids and patient states she has a history of GERD -VTE prophylaxis, on subcutaneous heparin - Influenza and pneumonia vaccination per protocol - Pulmonary out patient follow up for PFTs and optimization of respiratory statu s post discharge - continue other care per attending / other consultants - prn analgesia per pain score Subjective Date of service: 04/28/21 Interval history: Patient is seen today for: Acute hypoxemic respiratory failure; AE-COPD; CURT; Obesity (BMI 30.0-34.9) Seen and examined at bedside; 24hour events reviewed; nursing and respiratory care staff consulted; no adverse overnight events reported to me; resting in bed; CTA chest did not show acute PE, patient's participation in physical therapy is limited by dyspnea. She denies any chest pain, no fevers, no diarrhea or vomiting. Has ongoing moist cough, states she has reflux and reflux medications help loosen up her congestion Objective Vital Signs - 12hr 04/28/21 04/28/21 04/28/21 03:06 06:20 06:21 Temperature 97.5 F L Pulse Rate 109 H 110 H Pulse Rate [ Anterior Bilateral Throughout] Respiratory 24 Rate Respiratory Rate [Anterior Bilateral Throughout] Blood Pressure 184/87 144/99 O2 Sat by Pulse 93 Oximetry 04/28/21 04/28/21 04/28/21 08:42 08:45 10:00 Temperature Pulse Rate 94 H Pulse Rate [ 111 H Anterior Bilateral Throughout] Respiratory Rate Respiratory 18 Rate [Anterior Bilateral Throughout] Blood Pressure O2 Sat by Pulse 95 Oximetry Constitutional: alert, appears uncomfortable, other (on supplemntal oxygen) Eyes: non-icteric ENT: oropharynx moist Neck: supple, no JVD, other (Short neck) Effort: mildly labored Ascultation: Bilateral: wheezes (wheezing.) Cardiovascular: regular rate and rhythm, other (S1,S2) Gastrointestinal: normoactive bowel sounds, soft, non-tender Integumentary: normal Extremities: no cyanosis, no edema Neurologic: normal mental status, non-focal exam, pupils equal and round, CN II- XII normal Psychiatric: mood appropriate, affect normal, anxious CBC and BMP: 04/27/21 05:59 04/27/21 05:59 ABG, PT/INR, D-dimer: ABG ABG pH 7.462 (7.320-7.450) H 04/22/21 21:40 POC ABG pCO2 29.5 mmHg (32.0-48.0) L 04/22/21 21:40 POC ABG pO2 56.6 mmHg (83-108) L 04/22/21 21:40 POC ABG HCO3 20.6 04/22/21 21:40 ABG O2 Saturation 90.2 (0-100) 04/22/21 21:40 Abnormal lab findings: Abnormal Labs 04/22/21 04/22/21 04/22/21 15:07 15:07 21:37 WBC 11.2 H RBC Hgb Hct RDW 19.3 H Plt Count Seg Neuts % (Manual) Lymphocytes % (Manual) Nucleated RBC % Seg Neutrophils # Man Lymphocytes # (Manual) ABG pH POC ABG pCO2 POC ABG pO2 ABG Oxyhemoglobin Carbon Dioxide BUN 28 H Creatinine 1.4 H Glucose 56 L POC Glucose Lactic Acid 2.30 H* Calcium Total Creatine Kinase Troponin T Triglycerides Cholesterol HDL Cholesterol 04/22/21 04/22/21 04/22/21 21:37 21:38 21:40 WBC RBC Hgb Hct RDW Plt Count Seg Neuts % (Manual) Lymphocytes % (Manual) Nucleated RBC % Seg Neutrophils # Man Lymphocytes # (Manual) ABG pH 7.462 H POC ABG pCO2 29.5 L POC ABG pO2 56.6 L ABG Oxyhemoglobin 89.5 L Carbon Dioxide BUN Creatinine Glucose POC Glucose 67 L Lactic Acid Calcium Total Creatine Kinase 27 L Troponin T 0.034 H Triglycerides 245 H Cholesterol 233 H HDL Cholesterol 132 H 04/22/21 04/23/21 04/23/21 23:28 05:38 06:00 WBC RBC 3.13 L Hgb 10.0 L Hct 29.5 L D RDW 19.5 H Plt Count 125 L Seg Neuts % (Manual) 83.0 H Lymphocytes % (Manual) 3.0 L Nucleated RBC % 1.0 H Seg Neutrophils # Man Lymphocytes # (Manual) 0.2 L ABG pH POC ABG pCO2 POC ABG pO2 ABG Oxyhemoglobin Carbon Dioxide BUN Creatinine Glucose POC Glucose 60 L 187 H Lactic Acid Calcium Total Creatine Kinase Troponin T Triglycerides Cholesterol HDL Cholesterol 04/23/21 04/23/21 04/23/21 06:00 08:40 11:23 WBC RBC Hgb Hct RDW Plt Count Seg Neuts % (Manual) Lymphocytes % (Manual) Nucleated RBC % Seg Neutrophils # Man Lymphocytes # (Manual) ABG pH POC ABG pCO2 POC ABG pO2 ABG Oxyhemoglobin Carbon Dioxide 20 L BUN 27 H Creatinine 1.3 H Glucose 187 H POC Glucose 210 H 167 H Lactic Acid Calcium 8.1 L Total Creatine Kinase Troponin T Triglycerides Cholesterol HDL Cholesterol 04/23/21 04/23/21 04/23/21 16:29 20:28 22:27 WBC RBC Hgb Hct RDW Plt Count Seg Neuts % (Manual) Lymphocytes % (Manual) Nucleated RBC % Seg Neutrophils # Man Lymphocytes # (Manual) ABG pH POC ABG pCO2 POC ABG pO2 ABG Oxyhemoglobin Carbon Dioxide BUN Creatinine Glucose POC Glucose 293 H 53 L 162 H Lactic Acid Calcium Total Creatine Kinase Troponin T Triglycerides Cholesterol HDL Cholesterol 04/24/21 04/24/21 04/24/21 05:41 07:53 10:59 WBC RBC Hgb Hct RDW Plt Count Seg Neuts % (Manual) Lymphocytes % (Manual) Nucleated RBC % Seg Neutrophils # Man Lymphocytes # (Manual) ABG pH POC ABG pCO2 POC ABG pO2 ABG Oxyhemoglobin Carbon Dioxide 21 L BUN 24 H Creatinine 1.3 H Glucose 126 H POC Glucose 116 H 118 H Lactic Acid Calcium Total Creatine Kinase Troponin T Triglycerides Cholesterol HDL Cholesterol 04/24/21 04/24/21 04/25/21 15:13 20:43 07:49 WBC RBC Hgb Hct RDW Plt Count Seg Neuts % (Manual) Lymphocytes % (Manual) Nucleated RBC % Seg Neutrophils # Man Lymphocytes # (Manual) ABG pH POC ABG pCO2 POC ABG pO2 ABG Oxyhemoglobin Carbon Dioxide BUN Creatinine Glucose POC Glucose 284 H 118 H 122 H Lactic Acid Calcium Total Creatine Kinase Troponin T Triglycerides Cholesterol HDL Cholesterol 04/25/21 04/25/21 04/26/21 12:02 21:11 07:25 WBC RBC Hgb Hct RDW Plt Count Seg Neuts % (Manual) Lymphocytes % (Manual) Nucleated RBC % Seg Neutrophils # Man Lymphocytes # (Manual) ABG pH POC ABG pCO2 POC ABG pO2 ABG Oxyhemoglobin Carbon Dioxide BUN Creatinine Glucose POC Glucose 203 H 156 H 135 H Lactic Acid Calcium Total Creatine Kinase Troponin T Triglycerides Cholesterol HDL Cholesterol 04/26/21 04/26/21 04/27/21 11:48 21:30 05:59 WBC 11.8 H RBC 3.36 L Hgb Hct RDW 19.0 H Plt Count Seg Neuts % (Manual) 76.0 H Lymphocytes % (Manual) 9.0 L Nucleated RBC % 1.0 H Seg Neutrophils # Man 9.0 H Lymphocytes # (Manual) 1.1 L ABG pH POC ABG pCO2 POC ABG pO2 ABG Oxyhemoglobin Carbon Dioxide BUN Creatinine Glucose POC Glucose 132 H 111 H Lactic Acid Calcium Total Creatine Kinase Troponin T Triglycerides Cholesterol HDL Cholesterol 04/27/21 04/27/21 04/27/21 05:59 07:22 11:33 WBC RBC Hgb Hct RDW Plt Count Seg Neuts % (Manual) Lymphocytes % (Manual) Nucleated RBC % Seg Neutrophils # Man Lymphocytes # (Manual) ABG pH POC ABG pCO2 POC ABG pO2 ABG Oxyhemoglobin Carbon Dioxide BUN 33 H Creatinine Glucose 102 H POC Glucose 108 H 109 H Lactic Acid Calcium Total Creatine Kinase Troponin T Triglycerides Cholesterol HDL Cholesterol 04/27/21 04/27/21 04/28/21 16:31 20:24 07:28 WBC RBC Hgb Hct RDW Plt Count Seg Neuts % (Manual) Lymphocytes % (Manual) Nucleated RBC % Seg Neutrophils # Man Lymphocytes # (Manual) ABG pH POC ABG pCO2 POC ABG pO2 ABG Oxyhemoglobin Carbon Dioxide BUN Creatinine Glucose POC Glucose 123 H 113 H 107 H Lactic Acid Calcium Total Creatine Kinase Troponin T Triglycerides Cholesterol HDL Cholesterol 04/28/21 10:48 WBC RBC Hgb Hct RDW Plt Count Seg Neuts % (Manual) Lymphocytes % (Manual) Nucleated RBC % Seg Neutrophils # Man Lymphocytes # (Manual) ABG pH POC ABG pCO2 POC ABG pO2 ABG Oxyhemoglobin Carbon Dioxide BUN Creatinine Glucose POC Glucose 198 H Lactic Acid Calcium Total Creatine Kinase Troponin T Triglycerides Cholesterol HDL Cholesterol Chest x-ray: image reviewed CT scan - chest: image reviewed (No PE, some GGO , no evidence of bullous disease) Allied health notes reviewed: nursing
--- NOTE | 2021-04-28 14:34 | Progress Note ---
Assessment and Plan 66-year-old female with past medical history of COPD, hepatitis C, GERD, and hypertension, history of hypokalemia, hypomagnesemia, and urinary tract infection Was brought to the emergency room with cough, wheezing, shortness of breath, mucus production, left lateral rib cage pain, present for a few days and not being relieved with outpatient medications..In the emergency room patient was found to have COPD exacerbation, started BiPAP and admitted for further evaluation management. A/P --Acute hypoxic respiratory failure secondary to COPD exacerbation Status post BiPAP following admission At present on 4 L oxygen via nasal cannula and oxygen saturations are 95-96%% --COPD exacerbation Continue aggressive neb treatments with DuoNeb solution Continue IV Solu-Medrol Continue Pulmicort and arformoterol solutions via nebulizer Chest x-ray reviewed --Hypertension ? BP is stable off medication Reviewed home medications and patient is not on antihypertensive medication either --Acute kidney injury, likely from vasomotor nephropathy Resolved with IV fluid Avoid nephrotoxins Monitor renal function --Normocytic anemia No overt bleed Monitor H&H --History of GERD Continue PPI --Dyslipidemia Mildly elevated triglycerides and total cholesterol HDL is 136 No need for statin at this time --Hypoglycemia Resolved A1c 5.8 --Full CODE STATUS --DVT prophylaxis Daily clinical course: 04/23 patient is awake and alert, appears mildly short of breath, but she offers no specific complaints except mild cough. She denies any fever or chills. Denies chest pain or shortness of breath. She denies any abdominal pain or nausea. Chart reviewed. Lab results reviewed 04/24 awake and alert, appears mildly short of breath, still coughing, she denies any fever or chills./She denies any chest pain nausea or abdominal pain Lab results reviewed,. Blood cultures no growth to date 04/25: Patient remains on 3 L nasal cannula O2. Wean off O2 as tolerated. Assess for home O2 requirement. Continue supplemental oxygen, nebulizer breathing treatment, tapering dose of steroid. 04/26: Patient's oxygen requirement went up to 4 L today. Patient will need home oxygen on discharge. Patient states that she did not get up from bed admission. Will consult PT. We will also consult pulmonology. 04/27: CTA chest today showed no acute PE, patient is unable to participate in physical therapy due to shortness of breath. Continue to wean off from O2, continue supportive care, follow pulmonary recommendation. Patient may need placement. 04/28: Patient need RMAON per PT recommendation, will wait for placement. cot to wean off O2 as tolerated. Subjective Date of service: 04/28/21 Interval history: Patient seen and examined. Medical records and medication list reviewed. No acute event overnight noted by the RN. Patient remains on 3 L O2, continue to complains of difficulty breathing even on resting. Patient is tolerating diet. PT recommended RAMON Discussed plan of care at bedside with patient. Objective - Exam Narrative Exam: General appearance: Present: no acute distress, patient with puffy face - EENT Eyes: PERRL, EOM intact ENT: hearing intact - Neck Neck: supple, normal ROM, no masses or JVD - Respiratory Respiratory effort: other (dyspneic) Respiratory: bilateral: diminished, diffuse bilateral rhonchi - Cardiovascular Rhythm: regular Heart Sounds: Present: S1 & S2 Extremities: No edema - Gastrointestinal General gastrointestinal: Present: soft, non-tender Rectal Exam: deferred - Integumentary Integumentary: clear - Musculoskeletal Musculoskeletal: generalized weakness - Neurologic Neurologic: moves all extremities - Constitutional Vitals: Vital Signs - 12hr 04/28/21 04/28/21 04/28/21 03:06 06:20 06:21 Temperature 97.5 F L Pulse Rate 109 H 110 H Pulse Rate [ Anterior Bilateral Throughout] Respiratory 24 Rate Respiratory Rate [Anterior Bilateral Throughout] Blood Pressure 184/87 144/99 O2 Sat by Pulse 93 Oximetry 04/28/21 04/28/21 04/28/21 08:42 08:45 10:00 Temperature Pulse Rate 94 H Pulse Rate [ 111 H Anterior Bilateral Throughout] Respiratory Rate Respiratory 18 Rate [Anterior Bilateral Throughout] Blood Pressure O2 Sat by Pulse 95 Oximetry - Labs CBC & Chem 7: 04/27/21 05:59 04/27/21 05:59 Labs: Abnormal lab results 04/27/21 04/27/21 04/28/21 Range/Units 16:31 20:24 07:28 POC Glucose 123 H 113 H 107 H (70-105) mg/dL 04/28/21 Range/Units 10:48 POC Glucose 198 H (70-105) mg/dL HEART Score - HEART Score Troponin: Troponin T 0.034 ng/mL (0.00-0.029) H 04/22/21 21:37
[2021-04-28] MEDS: MONTELUKAST 10 MG TAB PO SCH (22:05)
[2021-04-29] MEDS: methylPREDNISolone Sod Succinate 40 MG/1 ML INJ IV SCH ×3 (06:42→21:31)
[2021-04-29] MEDS: HEPARIN 5,000 UNIT/1 ML VIAL SUB-Q SCH ×3 (06:42→21:31)
[2021-04-29] MEDS: PANTOPRAZOLE 40 MG TAB PO SCH (08:15)
[2021-04-29] MEDS: INSULIN LISPRO 100 UNIT/ML SUB-Q SCH ×4 (08:16→21:58)
[2021-04-29] MEDS: ARFORMOTEROL 15 MCG/2 ML NEBU IH SCH ×2 (09:04→20:38)
[2021-04-29] MEDS: BUDESONIDE 0.5 MG/2 ML NEBU IH SCH ×2 (09:04→20:38)
[2021-04-29] MEDS: IPRATROPIUM/ALBUTEROL SULFATE 3 ML AMPUL.NEB IH SCH ×3 (09:04→20:38)
--- NOTE | 2021-04-29 10:44 | Progress Note ---
Assessment and Plan Acute hypoxemic respiratory failure AE-COPD CURT (acute kidney injury) Hypertension Hepatitis C Respiratory alkalosis Obesity (BMI 30.0-34.9) On going improvements, continue to require supplemental oxygen therapy Start steroid taper, discontinue IV Solumedrol, start oral prednisone Discharge planning, possibly [facility] - continue to titrate supplemental oxygen to keep SpO2 89-92% - continue Bronchodilators (MARJORIE & DIANNA) with pulmonary hygiene per RT - continue systemic steroids with slow taper - continue to avoid nephrotoxins, renally dose all medications - continue mobility protocols to prevent pressure ulcers - PT/OT as tolerated -Avoid nephrotoxins, renally function is slowly improving -Keep even to negative fluid balance as tolerated by hemodynamics, renal function and electrolyte profile -Complete 5 day course of empiric antibiotic therapy for community acquired pneumonia - continue accuchecks with glycemic control per SSI for target blood glucose < 180 mg/dL - home oxygen evaluation at discharge - Stress ulcer prophylaxis while on high dose steroids, and a history of GERD -VTE prophylaxis, on subcutaneous heparin - Influenza and pneumonia vaccination per protocol - Pulmonary out patient follow up for PFTs and optimization of respiratory status post discharge - continue other care per attending / other consultants - prn analgesia per pain score Subjective Date of service: 04/29/21 Interval history: Patient is seen today for: Acute hypoxemic respiratory failure; AE-COPD; CURT; Obesity (BMI 30.0-34.9) Seen and examined at bedside; 24hour events reviewed; nursing and respiratory care staff consulted; no adverse overnight events reported to me; resting in bed; she denies any chest pain, no fevers, no diarrhea or vomiting. Has ongoing moist cough but improving. Objective Vital Signs - 12hr 04/29/21 04/29/21 04/29/21 00:43 05:16 09:04 Temperature 98.3 F 97.6 F Pulse Rate 104 H 101 H Pulse Rate [ 93 H Anterior Bilateral Throughout] Respiratory 22 20 Rate Respiratory 18 Rate [Anterior Bilateral Throughout] Blood Pressure 159/91 151/91 O2 Sat by Pulse 91 98 96 Oximetry 04/29/21 10:00 Temperature Pulse Rate Pulse Rate [ Anterior Bilateral Throughout] Respiratory 20 Rate Respiratory Rate [Anterior Bilateral Throughout] Blood Pressure O2 Sat by Pulse 97 Oximetry Constitutional: alert, appears uncomfortable, other (on supplemntal oxygen) Eyes: non-icteric ENT: oropharynx moist Neck: supple, no JVD, other (Short neck) Effort: mildly labored Ascultation: Bilateral: diminished breath sounds Cardiovascular: regular rate and rhythm, other (S1,S2) Gastrointestinal: normoactive bowel sounds, soft, non-tender, non-distended Integumentary: normal Extremities: no cyanosis, no edema Neurologic: normal mental status, non-focal exam, pupils equal and round, CN II- XII normal Psychiatric: mood appropriate, affect normal, anxious CBC and BMP: 04/27/21 05:59 04/27/21 05:59 ABG, PT/INR, D-dimer: ABG ABG pH 7.462 (7.320-7.450) H 04/22/21 21:40 POC ABG pCO2 29.5 mmHg (32.0-48.0) L 04/22/21 21:40 POC ABG pO2 56.6 mmHg (83-108) L 04/22/21 21:40 POC ABG HCO3 20.6 04/22/21 21:40 ABG O2 Saturation 90.2 (0-100) 04/22/21 21:40 Abnormal lab findings: Abnormal Labs 04/22/21 04/22/21 04/22/21 15:07 15:07 21:37 WBC 11.2 H RBC Hgb Hct RDW 19.3 H Plt Count Seg Neuts % (Manual) Lymphocytes % (Manual) Nucleated RBC % Seg Neutrophils # Man Lymphocytes # (Manual) ABG pH POC ABG pCO2 POC ABG pO2 ABG Oxyhemoglobin Carbon Dioxide BUN 28 H Creatinine 1.4 H Glucose 56 L POC Glucose Lactic Acid 2.30 H* Calcium Total Creatine Kinase Troponin T Triglycerides Cholesterol HDL Cholesterol 04/22/21 04/22/21 04/22/21 21:37 21:38 21:40 WBC RBC Hgb Hct RDW Plt Count Seg Neuts % (Manual) Lymphocytes % (Manual) Nucleated RBC % Seg Neutrophils # Man Lymphocytes # (Manual) ABG pH 7.462 H POC ABG pCO2 29.5 L POC ABG pO2 56.6 L ABG Oxyhemoglobin 89.5 L Carbon Dioxide BUN Creatinine Glucose POC Glucose 67 L Lactic Acid Calcium Total Creatine Kinase 27 L Troponin T 0.034 H Triglycerides 245 H Cholesterol 233 H HDL Cholesterol 132 H 04/22/21 04/23/21 04/23/21 23:28 05:38 06:00 WBC RBC 3.13 L Hgb 10.0 L Hct 29.5 L D RDW 19.5 H Plt Count 125 L Seg Neuts % (Manual) 83.0 H Lymphocytes % (Manual) 3.0 L Nucleated RBC % 1.0 H Seg Neutrophils # Man Lymphocytes # (Manual) 0.2 L ABG pH POC ABG pCO2 POC ABG pO2 ABG Oxyhemoglobin Carbon Dioxide BUN Creatinine Glucose POC Glucose 60 L 187 H Lactic Acid Calcium Total Creatine Kinase Troponin T Triglycerides Cholesterol HDL Cholesterol 04/23/21 04/23/21 04/23/21 06:00 08:40 11:23 WBC RBC Hgb Hct RDW Plt Count Seg Neuts % (Manual) Lymphocytes % (Manual) Nucleated RBC % Seg Neutrophils # Man Lymphocytes # (Manual) ABG pH POC ABG pCO2 POC ABG pO2 ABG Oxyhemoglobin Carbon Dioxide 20 L BUN 27 H Creatinine 1.3 H Glucose 187 H POC Glucose 210 H 167 H Lactic Acid Calcium 8.1 L Total Creatine Kinase Troponin T Triglycerides Cholesterol HDL Cholesterol 04/23/21 04/23/21 04/23/21 16:29 20:28 22:27 WBC RBC Hgb Hct RDW Plt Count Seg Neuts % (Manual) Lymphocytes % (Manual) Nucleated RBC % Seg Neutrophils # Man Lymphocytes # (Manual) ABG pH POC ABG pCO2 POC ABG pO2 ABG Oxyhemoglobin Carbon Dioxide BUN Creatinine Glucose POC Glucose 293 H 53 L 162 H Lactic Acid Calcium Total Creatine Kinase Troponin T Triglycerides Cholesterol HDL Cholesterol 04/24/21 04/24/21 04/24/21 05:41 07:53 10:59 WBC RBC Hgb Hct RDW Plt Count Seg Neuts % (Manual) Lymphocytes % (Manual) Nucleated RBC % Seg Neutrophils # Man Lymphocytes # (Manual) ABG pH POC ABG pCO2 POC ABG pO2 ABG Oxyhemoglobin Carbon Dioxide 21 L BUN 24 H Creatinine 1.3 H Glucose 126 H POC Glucose 116 H 118 H Lactic Acid Calcium Total Creatine Kinase Troponin T Triglycerides Cholesterol HDL Cholesterol 04/24/21 04/24/21 04/25/21 15:13 20:43 07:49 WBC RBC Hgb Hct RDW Plt Count Seg Neuts % (Manual) Lymphocytes % (Manual) Nucleated RBC % Seg Neutrophils # Man Lymphocytes # (Manual) ABG pH POC ABG pCO2 POC ABG pO2 ABG Oxyhemoglobin Carbon Dioxide BUN Creatinine Glucose POC Glucose 284 H 118 H 122 H Lactic Acid Calcium Total Creatine Kinase Troponin T Triglycerides Cholesterol HDL Cholesterol 04/25/21 04/25/21 04/26/21 12:02 21:11 07:25 WBC RBC Hgb Hct RDW Plt Count Seg Neuts % (Manual) Lymphocytes % (Manual) Nucleated RBC % Seg Neutrophils # Man Lymphocytes # (Manual) ABG pH POC ABG pCO2 POC ABG pO2 ABG Oxyhemoglobin Carbon Dioxide BUN Creatinine Glucose POC Glucose 203 H 156 H 135 H Lactic Acid Calcium Total Creatine Kinase Troponin T Triglycerides Cholesterol HDL Cholesterol 04/26/21 04/26/21 04/27/21 11:48 21:30 05:59 WBC 11.8 H RBC 3.36 L Hgb Hct RDW 19.0 H Plt Count Seg Neuts % (Manual) 76.0 H Lymphocytes % (Manual) 9.0 L Nucleated RBC % 1.0 H Seg Neutrophils # Man 9.0 H Lymphocytes # (Manual) 1.1 L ABG pH POC ABG pCO2 POC ABG pO2 ABG Oxyhemoglobin Carbon Dioxide BUN Creatinine Glucose POC Glucose 132 H 111 H Lactic Acid Calcium Total Creatine Kinase Troponin T Triglycerides Cholesterol HDL Cholesterol 04/27/21 04/27/21 04/27/21 05:59 07:22 11:33 WBC RBC Hgb Hct RDW Plt Count Seg Neuts % (Manual) Lymphocytes % (Manual) Nucleated RBC % Seg Neutrophils # Man Lymphocytes # (Manual) ABG pH POC ABG pCO2 POC ABG pO2 ABG Oxyhemoglobin Carbon Dioxide BUN 33 H Creatinine Glucose 102 H POC Glucose 108 H 109 H Lactic Acid Calcium Total Creatine Kinase Troponin T Triglycerides Cholesterol HDL Cholesterol 04/27/21 04/27/21 04/28/21 16:31 20:24 07:28 WBC RBC Hgb Hct RDW Plt Count Seg Neuts % (Manual) Lymphocytes % (Manual) Nucleated RBC % Seg Neutrophils # Man Lymphocytes # (Manual) ABG pH POC ABG pCO2 POC ABG pO2 ABG Oxyhemoglobin Carbon Dioxide BUN Creatinine Glucose POC Glucose 123 H 113 H 107 H Lactic Acid Calcium Total Creatine Kinase Troponin T Triglycerides Cholesterol HDL Cholesterol 04/28/21 04/28/21 04/28/21 10:48 16:13 20:54 WBC RBC Hgb Hct RDW Plt Count Seg Neuts % (Manual) Lymphocytes % (Manual) Nucleated RBC % Seg Neutrophils # Man Lymphocytes # (Manual) ABG pH POC ABG pCO2 POC ABG pO2 ABG Oxyhemoglobin Carbon Dioxide BUN Creatinine Glucose POC Glucose 198 H 133 H 145 H Lactic Acid Calcium Total Creatine Kinase Troponin T Triglycerides Cholesterol HDL Cholesterol Allied health notes reviewed: nursing
--- NOTE | 2021-04-29 13:02 | Progress Note ---
Assessment and Plan Assessment and Plan --Acute hypoxic respiratory failure secondary to COPD exacerbation Status post BiPAP following admission At present on 4 L oxygen via nasal cannula and oxygen saturations are 95-96%% --COPD exacerbation Continue aggressive neb treatments with DuoNeb solution Continue IV Solu-Medrol Continue Pulmicort and arformoterol solutions via nebulizer Chest x-ray reviewed --Hypertension ? BP is stable off medication Reviewed home medications and patient is not on antihypertensive medication either --Acute kidney injury, likely from vasomotor nephropathy Resolved with IV fluid Avoid nephrotoxins Monitor renal function --Normocytic anemia No overt bleed Monitor H&H --History of GERD Continue PPI --Dyslipidemia Mildly elevated triglycerides and total cholesterol HDL is 136 No need for statin at this time --Hypoglycemia Resolved A1c 5.8 --Full CODE STATUS --DVT prophylaxis Waiting for subacute rehab placement Subjective Date of service: 04/29/21 Principal diagnosis: Acute respiratory failure, COPD exacerbation Interval history: 66-year-old female with past medical history of COPD, hepatitis C, GERD, and hypertension, history of hypokalemia, hypomagnesemia, and urinary tract infection Was brought to the emergency room with cough, wheezing, shortness of breath, mucus production, left lateral rib cage pain, present for a few days and not being relieved with outpatient medications..In the emergency room patient was found to have COPD exacerbation, started BiPAP and admitted for further evaluation management. Daily clinical course: 04/23 patient is awake and alert, appears mildly short of breath, but she offers no specific complaints except mild cough. She denies any fever or chills. Denies chest pain or shortness of breath. She denies any abdominal pain or nausea. Chart reviewed. Lab results reviewed 04/24 awake and alert, appears mildly short of breath, still coughing, she denies any fever or chills./She denies any chest pain nausea or abdominal pain Lab results reviewed,. Blood cultures no growth to date 04/25: Patient remains on 3 L nasal cannula O2. Wean off O2 as tolerated. Assess for home O2 requirement. Continue supplemental oxygen, nebulizer breathing treatment, tapering dose of steroid. 04/26: Patient's oxygen requirement went up to 4 L today. Patient will need home oxygen on discharge. Patient states that she did not get up from bed admission. Will consult PT. We will also consult pulmonology. 04/27: CTA chest today showed no acute PE, patient is unable to participate in physical therapy due to shortness of breath. Continue to wean off from O2, continue supportive care, follow pulmonary recommendation. Patient may need placement. 04/28: Patient need [facility] per PT recommendation, will wait for placement. cot to wean off O2 as tolerated. 04/29/2021 Patient still short of breath and wheezing On 2 L nasal cannula oxygen IV Solu-Medrol to be continued Patient waiting for subacute rehab Objective - Constitutional Vitals: Vital Signs - 12hr 04/29/21 04/29/21 04/29/21 05:16 09:04 10:00 Temperature 97.6 F Pulse Rate 101 H Pulse Rate [ 93 H Anterior Bilateral Throughout] Respiratory 20 20 Rate Respiratory 18 Rate [Anterior Bilateral Throughout] Blood Pressure 151/91 O2 Sat by Pulse 98 96 97 Oximetry General appearance: Present: mild distress, well-nourished - EENT Eyes: PERRL, EOM intact ENT: hearing intact, clear oral mucosa Ears: bilateral: normal - Neck Neck: supple, normal ROM - Respiratory Respiratory effort: normal Respiratory: bilateral: diminished, rhonchi, wheezing - Breasts Breasts: normal - Cardiovascular Heart rate: 78 Rhythm: regular Heart Sounds: Present: S1 & S2. Absent: gallop, rub Extremities: pulses intact, No edema, normal color, Full ROM - Gastrointestinal General gastrointestinal: Present: soft, non-tender, non-distended, normal bowel sounds - Genitourinary Female genitourinary: normal - Integumentary Integumentary: clear, warm, dry - Musculoskeletal Musculoskeletal: 1, strength equal bilaterally - Neurologic Neurologic: moves all extremities - Psychiatric Psychiatric: memory intact, appropriate mood/affect, intact judgment & insight - Labs CBC & Chem 7: 04/27/21 05:59 04/27/21 05:59 Labs: Abnormal lab results 04/28/21 04/28/21 04/29/21 Range/Units 16:13 20:54 07:56 POC Glucose 133 H 145 H 135 H (70-105) mg/dL 04/29/21 Range/Units 11:50 POC Glucose 109 H (70-105) mg/dL HEART Score - HEART Score Troponin: Troponin T 0.034 ng/mL (0.00-0.029) H 04/22/21 21:37
[2021-04-29] MEDS: MONTELUKAST 10 MG TAB PO SCH (21:30)
[2021-04-30] MEDS: methylPREDNISolone Sod Succinate 40 MG/1 ML INJ IV SCH ×2 (05:40→13:53)
[2021-04-30] MEDS: HEPARIN 5,000 UNIT/1 ML VIAL SUB-Q SCH ×3 (05:41→21:57)
[2021-04-30] MEDS: PANTOPRAZOLE 40 MG TAB PO SCH (07:42)
[2021-04-30] MEDS: INSULIN LISPRO 100 UNIT/ML SUB-Q SCH ×4 (07:46→21:57)
[2021-04-30] MEDS: ARFORMOTEROL 15 MCG/2 ML NEBU IH SCH ×2 (08:21→19:54)
[2021-04-30] MEDS: BUDESONIDE 0.5 MG/2 ML NEBU IH SCH ×2 (08:21→19:54)
[2021-04-30] MEDS: IPRATROPIUM/ALBUTEROL SULFATE 3 ML AMPUL.NEB IH SCH (08:21)
[2021-04-30] MEDS ORDERED: ALBUTEROL 2.5 MG/3 ML NEBU IH PRN (09:53)
--- NOTE | 2021-04-30 14:22 | Progress Note ---
Assessment and Plan Acute hypoxemic respiratory failure AE-COPD CURT (acute kidney injury) Hypertension Hepatitis C Respiratory alkalosis Obesity (BMI 30.0-34.9) On going improvements, continues to require supplemental oxygen therapy Continue to titrate supplemental oxygen to keep SpO2 89-92% Continue steroid taper oral prednisone Discharge planning, possibly [facility] - continue Bronchodilators (MARJORIE & DIANNA) with pulmonary hygiene per RT - continue systemic steroids with slow taper - continue to avoid nephrotoxins, renally dose all medications -Get BMP in am - continue mobility protocols to prevent pressure ulcers - PT/OT as tolerated -Avoid nephrotoxins, -Keep even to negative fluid balance as tolerated by hemodynamics, renal function and electrolyte profile -Complete 5 day course of empiric antibiotic therapy for community acquired pneumonia - continue accuchecks with glycemic control per SSI for target blood glucose < 180 mg/dL - home oxygen evaluation at discharge - Stress ulcer prophylaxis while on high dose steroids, and a history of GERD -VTE prophylaxis, on subcutaneous heparin - Influenza and pneumonia vaccination per protocol - Pulmonary out patient follow up for PFTs and optimization of respiratory status post discharge - continue other care per attending / other consultants - prn analgesia per pain score Subjective Date of service: 04/30/21 Interval history: Patient is seen today for: Acute hypoxemic respiratory failure; AE-COPD; CURT; Obesity (BMI 30.0-34.9) Seen and examined at bedside; 24hour events reviewed; nursing and respiratory care staff consulted; no adverse overnight events reported to me; resting in bed; she denies any chest pain, no fevers, no diarrhea or vomiting. Has ongoing moist cough but improving. Objective Vital Signs - 12hr 04/30/21 04/30/21 04/30/21 04:53 07:32 08:21 Temperature 97.5 F L 98.6 F Pulse Rate 103 H 106 H Pulse Rate [ 100 H Anterior Bilateral Throughout] Respiratory 20 20 Rate Respiratory 16 Rate [Anterior Bilateral Throughout] Blood Pressure 165/77 173/86 O2 Sat by Pulse 96 97 100 Oximetry 04/30/21 04/30/21 10:00 11:34 Temperature 97.5 F L Pulse Rate 78 128 H Pulse Rate [ Anterior Bilateral Throughout] Respiratory 20 Rate Respiratory Rate [Anterior Bilateral Throughout] Blood Pressure 108/58 O2 Sat by Pulse 96 Oximetry Constitutional: alert, appears uncomfortable, other (on supplemntal oxygen) Eyes: non-icteric ENT: oropharynx moist Neck: supple, no JVD, other (Short neck) Effort: mildly labored Ascultation: Bilateral: diminished breath sounds, wheezes (wheezing.) Cardiovascular: regular rate and rhythm, other (S1,S2) Gastrointestinal: normoactive bowel sounds, soft, non-tender, non-distended Integumentary: normal Extremities: no cyanosis, no edema Neurologic: normal mental status, non-focal exam, pupils equal and round, CN II- XII normal Psychiatric: mood appropriate, affect normal, anxious CBC and BMP: 05/01/21 04:19 05/01/21 04:19 ABG, PT/INR, D-dimer: ABG ABG pH 7.462 (7.320-7.450) H 04/22/21 21:40 POC ABG pCO2 29.5 mmHg (32.0-48.0) L 04/22/21 21:40 POC ABG pO2 56.6 mmHg (83-108) L 04/22/21 21:40 POC ABG HCO3 20.6 04/22/21 21:40 ABG O2 Saturation 90.2 (0-100) 04/22/21 21:40 Abnormal lab findings: Abnormal Labs 04/22/21 04/22/21 04/22/21 15:07 15:07 21:37 WBC 11.2 H RBC Hgb Hct RDW 19.3 H Plt Count Seg Neuts % (Manual) Lymphocytes % (Manual) Nucleated RBC % Seg Neutrophils # Man Lymphocytes # (Manual) ABG pH POC ABG pCO2 POC ABG pO2 ABG Oxyhemoglobin Carbon Dioxide BUN 28 H Creatinine 1.4 H Glucose 56 L POC Glucose Lactic Acid 2.30 H* Calcium Total Creatine Kinase Troponin T Triglycerides Cholesterol HDL Cholesterol 04/22/21 04/22/21 04/22/21 21:37 21:38 21:40 WBC RBC Hgb Hct RDW Plt Count Seg Neuts % (Manual) Lymphocytes % (Manual) Nucleated RBC % Seg Neutrophils # Man Lymphocytes # (Manual) ABG pH 7.462 H POC ABG pCO2 29.5 L POC ABG pO2 56.6 L ABG Oxyhemoglobin 89.5 L Carbon Dioxide BUN Creatinine Glucose POC Glucose 67 L Lactic Acid Calcium Total Creatine Kinase 27 L Troponin T 0.034 H Triglycerides 245 H Cholesterol 233 H HDL Cholesterol 132 H 04/22/21 04/23/21 04/23/21 23:28 05:38 06:00 WBC RBC 3.13 L Hgb 10.0 L Hct 29.5 L D RDW 19.5 H Plt Count 125 L Seg Neuts % (Manual) 83.0 H Lymphocytes % (Manual) 3.0 L Nucleated RBC % 1.0 H Seg Neutrophils # Man Lymphocytes # (Manual) 0.2 L ABG pH POC ABG pCO2 POC ABG pO2 ABG Oxyhemoglobin Carbon Dioxide BUN Creatinine Glucose POC Glucose 60 L 187 H Lactic Acid Calcium Total Creatine Kinase Troponin T Triglycerides Cholesterol HDL Cholesterol 04/23/21 04/23/21 04/23/21 06:00 08:40 11:23 WBC RBC Hgb Hct RDW Plt Count Seg Neuts % (Manual) Lymphocytes % (Manual) Nucleated RBC % Seg Neutrophils # Man Lymphocytes # (Manual) ABG pH POC ABG pCO2 POC ABG pO2 ABG Oxyhemoglobin Carbon Dioxide 20 L BUN 27 H Creatinine 1.3 H Glucose 187 H POC Glucose 210 H 167 H Lactic Acid Calcium 8.1 L Total Creatine Kinase Troponin T Triglycerides Cholesterol HDL Cholesterol 04/23/21 04/23/21 04/23/21 16:29 20:28 22:27 WBC RBC Hgb Hct RDW Plt Count Seg Neuts % (Manual) Lymphocytes % (Manual) Nucleated RBC % Seg Neutrophils # Man Lymphocytes # (Manual) ABG pH POC ABG pCO2 POC ABG pO2 ABG Oxyhemoglobin Carbon Dioxide BUN Creatinine Glucose POC Glucose 293 H 53 L 162 H Lactic Acid Calcium Total Creatine Kinase Troponin T Triglycerides Cholesterol HDL Cholesterol 04/24/21 04/24/21 04/24/21 05:41 07:53 10:59 WBC RBC Hgb Hct RDW Plt Count Seg Neuts % (Manual) Lymphocytes % (Manual) Nucleated RBC % Seg Neutrophils # Man Lymphocytes # (Manual) ABG pH POC ABG pCO2 POC ABG pO2 ABG Oxyhemoglobin Carbon Dioxide 21 L BUN 24 H Creatinine 1.3 H Glucose 126 H POC Glucose 116 H 118 H Lactic Acid Calcium Total Creatine Kinase Troponin T Triglycerides Cholesterol HDL Cholesterol 04/24/21 04/24/21 04/25/21 15:13 20:43 07:49 WBC RBC Hgb Hct RDW Plt Count Seg Neuts % (Manual) Lymphocytes % (Manual) Nucleated RBC % Seg Neutrophils # Man Lymphocytes # (Manual) ABG pH POC ABG pCO2 POC ABG pO2 ABG Oxyhemoglobin Carbon Dioxide BUN Creatinine Glucose POC Glucose 284 H 118 H 122 H Lactic Acid Calcium Total Creatine Kinase Troponin T Triglycerides Cholesterol HDL Cholesterol 04/25/21 04/25/21 04/26/21 12:02 21:11 07:25 WBC RBC Hgb Hct RDW Plt Count Seg Neuts % (Manual) Lymphocytes % (Manual) Nucleated RBC % Seg Neutrophils # Man Lymphocytes # (Manual) ABG pH POC ABG pCO2 POC ABG pO2 ABG Oxyhemoglobin Carbon Dioxide BUN Creatinine Glucose POC Glucose 203 H 156 H 135 H Lactic Acid Calcium Total Creatine Kinase Troponin T Triglycerides Cholesterol HDL Cholesterol 04/26/21 04/26/21 04/27/21 11:48 21:30 05:59 WBC 11.8 H RBC 3.36 L Hgb Hct RDW 19.0 H Plt Count Seg Neuts % (Manual) 76.0 H Lymphocytes % (Manual) 9.0 L Nucleated RBC % 1.0 H Seg Neutrophils # Man 9.0 H Lymphocytes # (Manual) 1.1 L ABG pH POC ABG pCO2 POC ABG pO2 ABG Oxyhemoglobin Carbon Dioxide BUN Creatinine Glucose POC Glucose 132 H 111 H Lactic Acid Calcium Total Creatine Kinase Troponin T Triglycerides Cholesterol HDL Cholesterol 04/27/21 04/27/21 04/27/21 05:59 07:22 11:33 WBC RBC Hgb Hct RDW Plt Count Seg Neuts % (Manual) Lymphocytes % (Manual) Nucleated RBC % Seg Neutrophils # Man Lymphocytes # (Manual) ABG pH POC ABG pCO2 POC ABG pO2 ABG Oxyhemoglobin Carbon Dioxide BUN 33 H Creatinine Glucose 102 H POC Glucose 108 H 109 H Lactic Acid Calcium Total Creatine Kinase Troponin T Triglycerides Cholesterol HDL Cholesterol 04/27/21 04/27/21 04/28/21 16:31 20:24 07:28 WBC RBC Hgb Hct RDW Plt Count Seg Neuts % (Manual) Lymphocytes % (Manual) Nucleated RBC % Seg Neutrophils # Man Lymphocytes # (Manual) ABG pH POC ABG pCO2 POC ABG pO2 ABG Oxyhemoglobin Carbon Dioxide BUN Creatinine Glucose POC Glucose 123 H 113 H 107 H Lactic Acid Calcium Total Creatine Kinase Troponin T Triglycerides Cholesterol HDL Cholesterol 04/28/21 04/28/21 04/28/21 10:48 16:13 20:54 WBC RBC Hgb Hct RDW Plt Count Seg Neuts % (Manual) Lymphocytes % (Manual) Nucleated RBC % Seg Neutrophils # Man Lymphocytes # (Manual) ABG pH POC ABG pCO2 POC ABG pO2 ABG Oxyhemoglobin Carbon Dioxide BUN Creatinine Glucose POC Glucose 198 H 133 H 145 H Lactic Acid Calcium Total Creatine Kinase Troponin T Triglycerides Cholesterol HDL Cholesterol 04/29/21 04/29/21 04/29/21 07:56 11:50 15:50 WBC RBC Hgb Hct RDW Plt Count Seg Neuts % (Manual) Lymphocytes % (Manual) Nucleated RBC % Seg Neutrophils # Man Lymphocytes # (Manual) ABG pH POC ABG pCO2 POC ABG pO2 ABG Oxyhemoglobin Carbon Dioxide BUN Creatinine Glucose POC Glucose 135 H 109 H 182 H Lactic Acid Calcium Total Creatine Kinase Troponin T Triglycerides Cholesterol HDL Cholesterol 04/30/21 04/30/21 07:29 11:32 WBC RBC Hgb Hct RDW Plt Count Seg Neuts % (Manual) Lymphocytes % (Manual) Nucleated RBC % Seg Neutrophils # Man Lymphocytes # (Manual) ABG pH POC ABG pCO2 POC ABG pO2 ABG Oxyhemoglobin Carbon Dioxide BUN Creatinine Glucose POC Glucose 114 H 174 H Lactic Acid Calcium Total Creatine Kinase Troponin T Triglycerides Cholesterol HDL Cholesterol Allied health notes reviewed: nursing
--- NOTE | 2021-04-30 15:16 | Progress Note ---
Assessment and Plan Assessment and Plan --Acute hypoxic respiratory failure secondary to COPD exacerbation Status post BiPAP following admission At present on 2 L oxygen via nasal cannula and oxygen saturations are 95-96%% --COPD exacerbation Continue aggressive neb treatments with DuoNeb solution IV Solu-Medrol stopped Patient started on oral prednisone ContinueContinue Pulmicort and arformoterol solutions via nebulizer Chest x-ray reviewed --Hypertension ? BP is stable off medication Reviewed home medications and patient is not on antihypertensive medication either --Acute kidney injury, likely from vasomotor nephropathy Resolved with IV fluid Avoid nephrotoxins Monitor renal function --Normocytic anemia No overt bleed Monitor H&H --History of GERD Continue PPI --Dyslipidemia Mildly elevated triglycerides and total cholesterol HDL is 136 No need for statin at this time --Hypoglycemia Resolved A1c 5.8 --Full CODE STATUS --DVT prophylaxis Waiting for subacute rehab placement Subjective Date of service: 04/30/21 Principal diagnosis: Acute respiratory failure, COPD exacerbation Interval history: 66-year-old female with past medical history of COPD, hepatitis C, GERD, and hypertension, history of hypokalemia, hypomagnesemia, and urinary tract infection Was brought to the emergency room with cough, wheezing, shortness of breath, mucus production, left lateral rib cage pain, present for a few days and not being relieved with outpatient medications..In the emergency room patient was found to have COPD exacerbation, started BiPAP and admitted for further evaluation management. Daily clinical course: 04/23 patient is awake and alert, appears mildly short of breath, but she offers no specific complaints except mild cough. She denies any fever or chills. Denies chest pain or shortness of breath. She denies any abdominal pain or nausea. Chart reviewed. Lab results reviewed 04/24 awake and alert, appears mildly short of breath, still coughing, she denies any fever or chills./She denies any chest pain nausea or abdominal pain Lab results reviewed,. Blood cultures no growth to date 04/25: Patient remains on 3 L nasal cannula O2. Wean off O2 as tolerated. Assess for home O2 requirement. Continue supplemental oxygen, nebulizer breathing treatment, tapering dose of steroid. 04/26: Patient's oxygen requirement went up to 4 L today. Patient will need home oxygen on discharge. Patient states that she did not get up from bed admission. Will consult PT. We will also consult pulmonology. 04/27: CTA chest today showed no acute PE, patient is unable to participate in physical therapy due to shortness of breath. Continue to wean off from O2, continue supportive care, follow pulmonary recommendation. Patient may need placement. 04/28: Patient need [facility] per PT recommendation, will wait for placement. cot to wean off O2 as tolerated. 04/29/2021 Patient still short of breath and wheezing On 2 L nasal cannula oxygen IV Solu-Medrol to be continued Patient waiting for subacute rehab 04/30/2021 Patient waiting for subacute rehab Patient on 2 L nasal cannula oxygen IV Solu-Medrol stopped Patient started on oral prednisone Objective - Constitutional Vitals: Vital Signs - 12hr 04/30/21 04/30/21 04/30/21 04:53 07:32 08:21 Temperature 97.5 F L 98.6 F Pulse Rate 103 H 106 H Pulse Rate [ 100 H Anterior Bilateral Throughout] Respiratory 20 20 Rate Respiratory 16 Rate [Anterior Bilateral Throughout] Blood Pressure 165/77 173/86 O2 Sat by Pulse 96 97 100 Oximetry 04/30/21 04/30/21 10:00 11:34 Temperature 97.5 F L Pulse Rate 78 128 H Pulse Rate [ Anterior Bilateral Throughout] Respiratory 20 Rate Respiratory Rate [Anterior Bilateral Throughout] Blood Pressure 108/58 O2 Sat by Pulse 96 Oximetry General appearance: Present: mild distress, well-nourished - EENT Eyes: PERRL, EOM intact ENT: hearing intact, clear oral mucosa Ears: bilateral: normal - Neck Neck: supple, normal ROM - Respiratory Respiratory effort: normal Respiratory: bilateral: diminished, rhonchi, wheezing - Breasts Breasts: normal - Cardiovascular Heart rate: 78 Rhythm: regular Heart Sounds: Present: S1 & S2. Absent: gallop, rub Extremities: pulses intact, No edema, normal color, Full ROM - Gastrointestinal General gastrointestinal: Present: soft, non-tender, non-distended, normal bowel sounds - Genitourinary Female genitourinary: normal - Integumentary Integumentary: clear, warm, dry - Musculoskeletal Musculoskeletal: 1, strength equal bilaterally - Neurologic Neurologic: moves all extremities - Psychiatric Psychiatric: memory intact, appropriate mood/affect, intact judgment & insight - Labs CBC & Chem 7: 04/27/21 05:59 04/27/21 05:59 Labs: Abnormal lab results 04/29/21 04/30/21 04/30/21 Range/Units 15:50 07:29 11:32 POC Glucose 182 H 114 H 174 H (70-105) mg/dL HEART Score - HEART Score Troponin: Troponin T 0.034 ng/mL (0.00-0.029) H 04/22/21 21:37
[2021-04-30] MEDS ORDERED: predniSONE 10 MG TAB PO SCH (16:00)
[2021-04-30] MEDS: MONTELUKAST 10 MG TAB PO SCH (21:56)
[2021-05-01 05:34] LABS: Hematocrit 26.8 % (30.3-42.9); Hemoglobin 8.6 gm/dl (10.1-14.3); Mean Corpuscular HGB Conc 32 % (30-34); Mean Corpuscular Volume 100 fl (79-97); Platelet Count 170 K/mm3 (140-440); Red Blood Count 2.69 M/mm3 (3.65-5.03); Red Cell Distribution Width 19.6 % (13.2-15.2)
[2021-05-01] MEDS: HEPARIN 5,000 UNIT/1 ML VIAL SUB-Q SCH (05:41)
[2021-05-01 05:53] LABS: Albumin 3.8 g/dL (3.9-5); Calcium 8.6 mg/dL (8.4-10.2)
[2021-05-01] MEDS ORDERED: FUROSEMIDE 40 MG/4 ML INJ IV ONE (06:15)
[2021-05-01] MEDS ORDERED: DEXTROSE 50% IN WATER (25GM) 50 ML SYRINGE IV ONE (06:40)
[2021-05-01] MEDS ORDERED: EPINEPHrine 1 MG/10 ML SYRINGE ONE (06:40)
[2021-05-01] MEDS ORDERED: SODIUM BICARB 8.4% 50 MEQ/50 ML SYRINGE IV ONE ×2 (06:40→07:33)
[2021-05-01] MEDS ORDERED: CALCIUM CHLORIDE 1,000 MG/10 ML SYRINGE IV ONE (06:40)
[2021-05-01] MEDS ORDERED: INSULIN REGULAR, HUMAN 100 UNITS/1 ML ONE (06:46)
--- NOTE | 2021-05-01 07:09 | Event Note ---
Date: 05/01/21 I responded to the CODE BL[facility]. When I arrived patient already in a full cardiac arrest, CPR in progress. ACLS protocol initiated and continued. Patient intubated by me using a glide scope. Patient intubated with 7.5mm ET tube. I visualized the tube passing through the vocal cord. Capnometry color change to yellow. Good breath sound on both side. No complication. Upon carefully reviewing of the labs recently ordered. Patient had a potassium of 7. I immediately instructed to give calcium gluconate, dextrose D50 and insulin and bicarb. Patient care transfer to Dr. Mace, hospitalist senior integration developer. Total critical time I spent on the floor was 20 minutes.
--- NOTE | 2021-05-01 07:11 | Event Note ---
Date: 05/01/21 CODE BLUE was called patient was found in asystole. Patient potassium was 7.0. Patient was given CPR as per ACLS protocol. 5 epi was given 3 bicarb 3 calcium gluconate was given patient also get IV fluid 10 units of insulin and 1 ampoule of D50. Patient was intubated by the ER physician. Patient regained pulse. Patient was transferred to the ICU
--- NOTE | 2021-05-01 08:05 | Event Note ---
Date: 05/01/21 I responded to CODE BLUE , when I arrived CPR was in progress. Patient had cardiac arrest x3 this morning. After first cardiac arrest patient was intubated and transferred to ICU from telemetry floor, in ICU patient had second and third cardiac arrest , patient received CPR per ACLS protocol with return of pulse, patient has very poor prognosis,I called and spoke with patient's brother Torres CHAUHAN at [phone] and discussed about the 3 episodes of cardiac arrest and CPR per ACLS protocol. The brother requested DNR status. Will Continue the current management, poor prognosis. I informed patient's attending physician Dr. Bar Please refer to the CODE sheets for all the details. Critical care time 40 minutes.
--- NOTE | 2021-05-01 08:53 | Event Note ---
Date: 05/01/21 I was present in the ICU, patient's nurse reports that patient . When I went and examined the patient, patient is unresponsive, pupils dilated and fixed No cardiopulmonary activity noted, pronounced . Time pronounced; 7:49 on 05/01/2021 Time of 7:49 on 05/01/2021. was informed. certificate and summary will be done by patient's attending physician Dr. Bar
[2021-05-01 09:08] VITALS: BP 53/33
--- NOTE | 2021-05-01 10:14 | Death Summary ---
Summary - Providers Consults: 04/22/21 22:06 Consult to Dietitian/Nutrition [CONS] Routine Physician Instructions: Reason For Exam: Reason for Consult: Diet education 04/26/21 14:46 Consult to Physician [CONS] Routine Comment: Consulting Provider: JAYDA MARCUS Physician Instructions: Reason For Exam: COPD 04/26/21 14:47 Physical Therapy Evaluation and Treat [CONS] Routine Comment: Reason For Exam: Debility 05/01/21 08:14 Consult to Physician [CONS] Routine Comment: Consulting Provider: CA MOSES Physician Instructions: Reason For Exam: s/p cardiac arrest Attending: KANDI RODRIGUEZ - summary Date of admission: 04/22/21 23:15 Date of : 05/01/21 Disposition: This is a 66-year-old female with COPD, hepatitis C, GERD, and hypertension, history of hypokalemia, hypomagnesemia, and urinary tract infection who presented to the ED with cough, wheezing, shortness of breath, mucus production, left lateral rib cage pain, present for a few days and not being relieved with outpatient medications. Work up in in the emergency room patient revealed COPD exacerbation, started BiPAP and admitted for further evaluation management. On 04/23 and patient was awake and alert, mildly short of breath , mild cough and blood cultures had no growth to date. on 04/26 she remained on 3L NC and she was on nebulizer breathing treatments and we were tapering her dose of steroid. on 04/26 her oxygen requirement went up to 4 L and PT and pulmonology were consulted. On 04/27 she received a CTA chest which showed no acute PE, patient is unable to participate in physical therapy due to shortness of breath. On 04/28 subacute rehab was recommended by PT and CM started to look for placement. She remained on nasal cannula and on 04/30 solu-medrol IV was switched to PO prednisone. This morning the patient was found unresponsive and asystolic. Her potassium was noted to be 7 and she received d50, 10 units of insulin and calcium gluconate. She received 3 mg epinephrine, 3 CaCl, 3 bicarb IVP during cardiac arrest and ROSC was achieved. She was transferred to the ICU where she preceded to have further cardiac arrests and received a total of 5 mg epineph rine, 3 amps of bicarbs, 2 IVP Ca Gluconate. Patients brother was contacted and he decided to change the code status to DNR/AND. Time of was pronounced by Dr. Wolfe at 0749 on 05/01/2021. Family was contacted and informed. --Cardiac arrest --Acute hypoxic respiratory failure secondary to COPD exacerbation --COPD exacerbation --Hypertension --Acute kidney injury, likely from vasomotor nephropathy --Normocytic anemia --History of GERD --Dyslipidemia --Hypoglycemia - Final diagnosis (1) Cardiac arrest Note: Final diagnosis: (2) CURT (acute kidney injury) Note: Final diagnosis: (3) Acute hypoxemic respiratory failure Note: Final diagnosis: (4) COPD with exacerbation Note: Final diagnosis: (5) Hypertension Note: Final diagnosis: (6) Hypoglycemia Note: Final diagnosis: (7) Obesity (BMI 30.0-34.9) Note: Final diagnosis:
[2021-05-01 11:58] LABS: Total Cells Counted 100
[2021-05-01 12:00] LABS: Anisocytosis Few; Macrocytosis Few; Platelet Estimate Consistent w Auto
== END 2021-05-01 10:00 | DRG 208 ==
LOC: ED 11:56 → IMCU 23:15 → 4A 04-23 01:04 → CC1 05-01 07:41
PROVIDERS: ADMIT Hospitalist; ATTEND Internal Medicine
PROC: 5A09357 Assistance with Respiratory Ventilation, Less than 24 Consecutive Hours, Continuous Positive Airway Pressure (ICD-10-PCS; 2021-04-22)
PROC: 5A09357 Assistance with Respiratory Ventilation, Less than 24 Consecutive Hours, Continuous Positive Airway Pressure (ICD-10-PCS; 2021-04-23)
PROC: 5A12012 Performance of Cardiac Output, Single, Manual (ICD-10-PCS; principal; 2021-05-01)
PROC: 5A1935Z Respiratory Ventilation, Less than 24 Consecutive Hours (ICD-10-PCS; 2021-05-01)
PROC: 4A033R1 Measurement of Arterial Saturation, Peripheral, Percutaneous Approach (ICD-10-PCS; 2021-05-01)
PROC: 0BH17EZ Insertion of Endotracheal Airway into Trachea, Via Natural or Artificial Opening (ICD-10-PCS; 2021-05-01)
PROC: 5A09357 Assistance with Respiratory Ventilation, Less than 24 Consecutive Hours, Continuous Positive Airway Pressure (ICD-10-PCS; 2021-05-01)
DX: J96.01 Acute respiratory failure with hypoxia (principal); N17.0 Acute kidney failure with tubular necrosis; J44.1 Chronic obstructive pulmonary disease with (acute) exacerbation; K21.9 Gastro-esophageal reflux disease without esophagitis; E11.649 Type 2 diabetes mellitus with hypoglycemia without coma; M94.0 Chondrocostal junction syndrome [Tietze]; E83.42 Hypomagnesemia; E83.51 Hypocalcemia; I10 Essential (primary) hypertension; E87.6 Hypokalemia; Z66 Do not resuscitate; D64.9 Anemia, unspecified; E78.5 Hyperlipidemia, unspecified; B18.2 Chronic viral hepatitis C; E66.9 Obesity, unspecified; J45.909 Unspecified asthma, uncomplicated; I46.9 Cardiac arrest, cause unspecified; Z98.41 Cataract extraction status, right eye; Z98.42 Cataract extraction status, left eye; Z68.30 Body mass index [BMI] 30.0-30.9, adult; Z79.899 Other long term (current) drug therapy; Z79.52 Long term (current) use of systemic steroids; Z87.891 Personal history of nicotine dependence
CPT/HCPCS: 36415; 71046; 71275; 80048; 80053; 80061; 81001; 82140; 82550; 82805; 82962; 83036; 83735; 84484; 85007; 85025; 85027; 87040; 87086; 93005; 94002; 94003; 94640; 94644; 96374; 96375; G0378; J7070; J0171; J0360; J0456; J0696; J1644; J1815; J1885; J1940; J2920; J2930; J7030; J7040; J7512; Q9967